=== PATIENT | female | born 1995 | race Caucasian/White ===

== ENCOUNTER → 2018-10-31 | Outpatient (CLI) | payer OTHER ==
[2018-10-31 13:19] LABS: HEMATOCRIT 38.4 % (36.0-47.0); HEMOGLOBIN 12.5 g/dl (12.0-15.5); MEAN CORPUSCULAR HEMOGLOBIN 31.6 pg (27.0-33.0); MEAN CORPUSCULAR HGB CONC 32.6 g/dl (32.0-36.5); MEAN CORPUSCULAR VOLUME 97.2 fl (80.0-96.0); PLATELET COUNT, AUTOMATED 192 10^3/uL (150-450); RED BLOOD COUNT 3.95 10^6/uL (4.00-5.40); WHITE BLOOD COUNT 8.1 10^3/uL (4.0-10.0)
[2018-10-31 13:20] LABS: GLUCOSE CHALLENGE TEST 1 HOUR 110 MG/DL (LESS THAN 140)
[2018-10-31 14:14] LABS: HEPATITIS C VIRUS ABY INDEX < 0.0 INDEX (<0.8)
== END ==
LOC: M SMT 09:04
PROVIDERS: ATTEND Obstetrics & Gynecology
DX: Z34.82 Encounter for supervision of other normal pregnancy, second trimester (principal)

== ENCOUNTER → 2018-11-14 | Outpatient (REF) | payer OTHER ==
[2018-11-14 14:08] LABS: TOTAL PROTEIN,RANDOM URINE 17.5 MG/DL (0.0-12.0)
== END ==
LOC: M LAB REF 13:01
PROVIDERS: ATTEND Obstetrics & Gynecology
DX: O09.293 Supervision of pregnancy with other poor reproductive or obstetric history, third trimester (principal)

== ENCOUNTER 2018-11-19 00:20 | Outpatient (CLI) | payer OTHER ==
[~2018-11-19] VITALS: Ht 154.9 cm; Wt 101.5 kg
[2018-11-19 00:50] VITALS: BP 134/84
[2018-11-19] MEDS ORDERED: LR 1,000 ML IV SCH (01:30)
[2018-11-19] MEDS ORDERED: LACTATED RINGER'S 1000 ML IV ONE (01:30)
[2018-11-19 01:45] LABS: APPEARANCE, URINE HAZY (CLEAR); BACTERIA, URINE AUTO NEGATIVE (NEGATIVE); BILIRUBIN, URINE AUTO NEGATIVE (NEGATIVE); BLOOD, URINE BLOOD 1+ (NEGATIVE); COLOR, URINE YELLOW (YELLOW); GLUCOSE, URINE (UA) AUTO NEGATIVE (NEGATIVE); KETONE, URINE AUTO NEGATIVE (NEGATIVE); LEUKOCYTE ESTERASE, URINE AUTO NEGATIVE (NEGATIVE); NITRITE, URINE AUTO NEGATIVE (NEGATIVE); PROTEIN, URINE AUTO NEGATIVE (NEGATIVE); RBC, URINE AUTO 22 /HPF (0-3); SPECIFIC GRAVITY URINE AUTO 1.021 (1.002-1.035); SQUAMOUS EPITHELIAL CELL UR AU 1 /HPF (0-6); UROBILINOGEN, URINE AUTO 0.2 mg/dL (0.0-2.0); WBC, URINE AUTO 1 /HPF (0-3)
--- NOTE | 2018-11-19 01:49 | IPNPDOC ---
Text Note Date of Service The patient was seen on 11/19/18. NOTE Outpatient 23yo G [id number] KALEE 01/19/19. Presents @ 31w2d with reports of UC. Reports shopping most of the day. Denies LOF or bleeding. Fetus is active Hx significant for threatened PTL first , received steroids then delivered @ 38 wks. Also 21wk stillbirth. NAD, resting in bed Cat I tracing, mild uterine irritability SSE cervix visually LTC, FFN obtained SVE parous, LTC, no presenting part in pelvis. Hydrate and reassess VS,Fishbone, I+O VS, Fishbone, I+O Vital Signs Date Time Temp Pulse Resp B/P (MAP) Pulse Ox O2 Delivery O2 Flow Rate FiO2 11/19/18 00:50 98.9 96 18 134/84 (101) Paulette Brunson CNM Nov 19, 2018 01:49
--- NOTE | 2018-11-19 03:15 | IPNPDOC ---
Text Note Date of Service The patient was seen on 11/19/18. NOTE FFN is negative Renal scan WNL. Pt reports UC are decreasing in intensity with oral hydration Cat I tracing Desires discharge Routine care and precautions. Keep next appt VS,Fishbone, I+O VS, Fishbone, I+O Vital Signs Date Time Temp Pulse Resp B/P (MAP) Pulse Ox O2 Delivery O2 Flow Rate FiO2 11/19/18 00:50 98.9 96 18 134/84 (101) Paulette Brunson CNM Nov 19, 2018 03:15
--- NOTE | 2018-11-19 04:13 | REPVR ---
EXAM: US Retroperitoneal Limited, Kidneys EXAM DATE/TIME: 11/19/2018 2:52 AM CLINICAL HISTORY: 23 years old, female; Abnormal findings; Abnormal lab test; Other: Hematuria; ; Additional info: Hematuria, cramping TECHNIQUE: Imaging protocol: Real-time ultrasound of the retroperitoneum with image documentation. Examination was focused on the kidneys. COMPARISON: No relevant prior studies available. FINDINGS: Right kidney: Right kidney is unremarkable measuring 13.7 cm. Left kidney: Left kidney is unremarkable measuring 12 cm. Bladder: Urinary bladder is unremarkable. Other findings: heart rate is 134 beats per minute. IMPRESSION: Bilateral kidneys are unremarkable. The urinary bladder is unremarkable. Electronically signed by: Kimberley Shultz On 11/19/2018 04:13:23 AM
== END 2018-11-19 03:19 | disposition home or self-care (01) ==
LOC: M LDO 00:20
PROVIDERS: ATTEND Advanced Practice Midwife
DX: O26.893 Other specified pregnancy related conditions, third trimester (principal); Z3A.31 31 weeks gestation of pregnancy
CPT/HCPCS: 59025; 76775; 81001; 82731; 87086; G0378; G0463

== ENCOUNTER → 2020-12-02 | Outpatient (CLI) | payer OTHER ==
[2020-12-02 13:25] LABS: HEMATOCRIT 36.7 % (36.0-47.0); HEMOGLOBIN 11.9 g/dl (12.0-15.5); MEAN CORPUSCULAR HEMOGLOBIN 30.1 pg (27.0-33.0); MEAN CORPUSCULAR HGB CONC 32.4 g/dl (32.0-36.5); MEAN CORPUSCULAR VOLUME 92.7 fl (80.0-96.0); PLATELET COUNT, AUTOMATED 222 10^3/uL (150-450); RED BLOOD COUNT 3.96 10^6/uL (4.00-5.40); WHITE BLOOD COUNT 6.8 10^3/uL (4.0-10.0)
[2020-12-02 14:44] LABS: HIV 1&2 SCREEN CENTAUR NEGATIVE (NEGATIVE)
[2020-12-02 14:47] LABS: GC DNA AMPLIFICATION NEGATIVE (NEGATIVE)
== END ==
LOC: M PLALAB 09:37
PROVIDERS: ATTEND Specialist
DX: Z34.81 Encounter for supervision of other normal pregnancy, first trimester (principal); Z3A.00 Weeks of gestation of pregnancy not specified
CPT/HCPCS: 36415; 85027; 86762; 86780; 86803; 86850; 86900; 86901; 87086; 87340; 87389; 87491; 87591; G0463

== ENCOUNTER → 2021-01-01 | Outpatient (CLI) | payer OTHER ==
--- NOTE | 2021-01-01 15:35 | REP ---
INDICATION: ANATOMY. COMPARISON: None. TECHNIQUE: Transabdominal scanning FINDINGS: Multiple ultrasonographic images of the gravid uterus shows a single living intrauterine gestation in the transverse presentation. Doppler interrogation of the heart shows a heart rate of 139 beats per minute. The placenta is anterior and not low-lying. The cervix measures 5.1 cm in length and is closed. The subjective amniotic fluid volume is within normal limits. BPD: 4.3 cm 19 weeks 0 days HC: 16.3 cm 19 weeks 0 days AC: 14.2 cm 19 weeks 4 days FL: 3.2 cm 20 weeks 0 days The estimated weight is 306 g which is at the 9th percentile for a 20 week 4 day gestational age. The anatomical structures seen to be unremarkable are as follows: Thalami, cavum septum pellucidum, cerebellum, cisterna magna, cerebral ventricles, stomach, cord insertion, upper lower extremities. Structures suboptimally visualized are as follows: Spine, kidneys, four-chamber heart, right ventricular outflow tract, and three-vessel umbilical cord IMPRESSION: Single living intrauterine gestation as described above with an estimated gestational age of 19 weeks 4 days via composite criteria and an estimated date of delivery of 05/24/2021 by today's exam. No anomalies were detected, however, I recommend a follow-up examination to optimally visualize those anatomical structures not well seen today as described above. <Electronically signed by Juan David Chapa > 01/01/21 1832
== END ==
LOC: M WHC 14:40
PROVIDERS: ATTEND Obstetrics & Gynecology
DX: Z36.89 Encounter for other specified antenatal screening (principal); Z3A.19 19 weeks gestation of pregnancy

== ENCOUNTER → 2021-01-21 | Outpatient (CLI) | payer OTHER ==
--- NOTE | 2021-01-22 06:41 | REP ---
INDICATION: F/U ANATOMY COMPARISON: 01/01/2021 TECHNIQUE: Transabdominal obstetrical ultrasound with color Doppler evaluation. FINDINGS: Examination demonstrates a single live intrauterine in transverse presentation. motion is identified by technologist. Placenta is noted anterior and grade 1 without evidence for placenta previa or abruption. Amniotic fluid volume is normal. Cervix measures 5.7 cm in length and appears closed.. Selected gestational age: 23 weeks 3 days with KALEE 05/17/2021. Gestational age by current measurements 21 weeks 3 days with KALEE 05/31/2021. FHR equals 147 beats per minute. Estimated weight 420 grams (less than 3rdpercentile). Anatomical assessment is limited for the evaluation of orbits, nose/lips, heart/ventricular outflow tracts and spine due to positioning and maternal body habitus. IMPRESSION: 1. Single live intrauterine demonstrating less than expected interval growth and correlation is recommended. 2. Limited evaluation of the spine and nose/lips again noted. <Electronically signed by Tripp Spears > 01/22/21 0678
== END ==
LOC: M WHC 13:08
PROVIDERS: ATTEND Specialist
DX: O99.212 Obesity complicating pregnancy, second trimester (principal); Z3A.23 23 weeks gestation of pregnancy

== ENCOUNTER → 2021-02-13 | Outpatient (CLI) | payer OTHER ==
--- NOTE | 2021-02-13 14:25 | REP ---
INDICATION: F/U ANATOMY. COMPARISON: Comparison study January 21, 2021. TECHNIQUE: Transabdominal obstetric sonography. FINDINGS: Scanning through the gravid uterus demonstrates a viable single intrauterine gestation in variable lie. motion is observed and heart rate is recorded at 142 beats per minute. A anterior placenta is seen, grade 1, without evidence of placenta previa. Closed cervical length is measured at 4.3 cm transabdominally. No extrauterine abnormality is observed. Amniotic fluid is subjectively normal. spine, nose and lips were visualized today and are felt to be unremarkable. In conjunction with the prior studies, anatomic survey is felt to be complete. Biometry chart: BPD 6.3 cm, 25 weeks 4 days Head circumference 23.3 cm, 25 weeks 3 days Abdominal circumference 21.7 cm, 26 weeks 1 day Femur length 4.8 cm, 26 weeks 0 days Humeral length 4.4 cm, 26 weeks 3 days HC AC ratio normal 1.08 Cephalic index normal 0.75 Estimated weight 878 g, 1 lb 14 oz, 12th percentile for 26 weeks 6 days IMPRESSION: Viable single intrauterine gestation at 25 weeks 6 days by today's composite sonographic criteria. KALEE by today's sonography May 23, 2021. No complication identified. Expected gestational age estimate based on known KALEE of May 16, 2021 is 26 weeks 6 days. <Electronically signed by Donovan De Dios > 02/13/21 1618
== END ==
LOC: M WHC 13:33
PROVIDERS: ATTEND Specialist
DX: Z36.2 Encounter for other antenatal screening follow-up (principal); Z3A.25 25 weeks gestation of pregnancy

== ENCOUNTER → 2021-02-24 | Outpatient (CLI) | payer OTHER ==
[2021-02-24 13:44] LABS: HEMATOCRIT 34.7 % (36.0-47.0); HEMOGLOBIN 11.2 g/dl (12.0-15.5); MEAN CORPUSCULAR HEMOGLOBIN 30.5 pg (27.0-33.0); MEAN CORPUSCULAR HGB CONC 32.3 g/dl (32.0-36.5); MEAN CORPUSCULAR VOLUME 94.6 fl (80.0-96.0); PLATELET COUNT, AUTOMATED 221 10^3/uL (150-450); RED BLOOD COUNT 3.67 10^6/uL (4.00-5.40); WHITE BLOOD COUNT 7.4 10^3/uL (4.0-10.0)
[2021-02-24 15:28] LABS: GC DNA AMPLIFICATION NEGATIVE (NEGATIVE)
== END ==
LOC: M PLALAB 09:51
PROVIDERS: ATTEND Specialist
DX: O99.212 Obesity complicating pregnancy, second trimester (principal)

== ENCOUNTER → 2021-03-07 | Outpatient (CLI) | payer OTHER ==
--- NOTE | 2021-03-07 11:29 | REP ---
INDICATION: IUGR COMPARISON: 02/13/2021 TECHNIQUE: Transabdominal obstetrical ultrasound with color Doppler evaluation. FINDINGS: Examination demonstrates a single live intrauterine in breech presentation. motion is identified by technologist. Placenta is noted fundal and grade 1 without evidence for placenta previa or abruption. Amniotic fluid volume is normal. Cervix measures 4.9 cm in length and appears closed.. Selected gestational age: 30 weeks 0 days with KALEE 05/16/2021. FHR equals 142 beats per minute. Biophysical profile score: 8/ Amniotic fluid index: 19.4 cm (9.0-23.4) Umbilical artery SD ratio: 3.42 IMPRESSION: Single live advanced gestation in breech presentation. Amniotic fluid volume is upper limits of normal. Biophysical profile score normal. <Electronically signed by Tripp Spears > 03/07/21 [id number]
== END ==
LOC: M WHC 10:39
PROVIDERS: ATTEND Advanced Practice Midwife
DX: Z36.3 Encounter for antenatal screening for malformations (principal); O36.5930 Maternal care for other known or suspected poor fetal growth, third trimester, not applicable or unspecified

== ENCOUNTER → 2021-03-14 | Outpatient (CLI) | payer OTHER ==
--- NOTE | 2021-03-14 16:54 | REP ---
INDICATION: GROWTH BPP IUGR. COMPARISON: 03/07/2021. TECHNIQUE: Real-time sonographic evaluation of the gravid uterus performed. FINDINGS: Estimated gestational age is31 weeks 0 days, EDC 05/16/2021. Today's measurements indicate appropriate growth. Presentation: Breech Placenta anterior, grade 2, without evidence of placenta previa. heart rate is recorded at 133 beats per minute. Amniotic fluid is subjectively normal. TODD 20.2, normal range 8.8-23.8. Biophysical profile score 8/8. SD ratio umbilical artery 4.19, normal range 1.90-3.98. RI 0.76, normal 0.51-0.76. Closed cervical length is measured at 4.9 cm. Biometry chart: BPD: 73 mm, 29 weeks 3 days, 18th percentile. HC: 274 mm, 29 weeks 6 days, 26th percentile AC: 258 mm, 30 weeks 0 days, 28th percentile Femur length: 57 mm, 30 weeks 0 days, 27th percentile HC to AC ratio: 1.06, normal range 0.96-1.15. Estimated weight: 1474g, 11th percentile. IMPRESSION: Viable single intrauterine gestation as above. <Electronically signed by Jomar Gomez > 03/14/21 5162
== END ==
LOC: M WHC 14:03
PROVIDERS: ATTEND Advanced Practice Midwife
DX: Z36.2 Encounter for other antenatal screening follow-up (principal); O36.5930 Maternal care for other known or suspected poor fetal growth, third trimester, not applicable or unspecified; Z3A.31 31 weeks gestation of pregnancy

== ENCOUNTER → 2021-03-19 | Outpatient (CLI) | payer OTHER ==
--- NOTE | 2021-03-20 11:41 | REP ---
INDICATION: BPP IUGR. COMPARISON: 03/14/2021. TECHNIQUE: Real-time sonographic evaluation of gravid uterus performed peer FINDINGS: There is a single living intrauterine gestation, the estimated gestational age is 31 weeks 5 days, EDC 05/16/2021. position transverse. Placenta anterior and grade 1 with no previa. heart rate 135 beats per minute. Amniotic fluid within normal limits. TODD 18.4, normal 8.7-24.1. Biophysical profile score 8/8. SD ratio umbilical artery 3.80, normal 1.87-3.90. RI 0.74, normal 0.50-0.75. Cervix is closed measures 4.4 cm in length. IMPRESSION: Biophysical profile score 8/8. <Electronically signed by Jomar Gomez > 03/20/21 [id number]
== END ==
LOC: M WHC 13:32
PROVIDERS: ATTEND Advanced Practice Midwife
DX: Z36.9 Encounter for antenatal screening, unspecified (principal); O36.5930 Maternal care for other known or suspected poor fetal growth, third trimester, not applicable or unspecified; Z3A.31 31 weeks gestation of pregnancy

== ENCOUNTER → 2021-03-21 | Outpatient (CLI) | payer OTHER ==
--- NOTE | 2021-03-21 15:35 | REP ---
INDICATION: BPP X2 WKLY IUGR. COMPARISON: 03/19/2021. TECHNIQUE: Real-time sonographic evaluation of gravid uterus performed. FINDINGS: There is a single living intrauterine gestation. The estimated gestational age is reportedly 32 weeks 0 days, EDC 05/16/2021. position transverse. Placenta anterior and grade 1 with no previa. heart rate 120 beats per minute. Amniotic fluid within normal limits. TODD 19.1, normal 8.6-24.2. Biophysical profile score 8/8. SD ratio umbilical artery 2.84, normal 1.84-3.87. RI 0.65, normal 0.50-0.75. Cervix is closed measures 5.3 cm in length. IMPRESSION: Biophysical profile score 8/8. <Electronically signed by Jomar Gomez > 03/21/21 [id number]
== END ==
LOC: M WHC 12:10
PROVIDERS: ATTEND Advanced Practice Midwife
DX: O36.5930 Maternal care for other known or suspected poor fetal growth, third trimester, not applicable or unspecified (principal); Z3A.00 Weeks of gestation of pregnancy not specified

== ENCOUNTER → 2021-03-25 | Outpatient (CLI) | payer OTHER ==
--- NOTE | 2021-03-25 15:03 | REP ---
INDICATION: BPP GROWTH IUGR. COMPARISON: 03/21/2021. TECHNIQUE: Real-time sonographic evaluation of the gravid uterus performed. FINDINGS: Estimated gestational age is32 weeks 4 days, EDC 05/16/2021. Today's measurements indicate somewhat less than expected growth. Today's estimated weight is at the 6th percentile, previously 11th percentile 03/14/2021. Presentation: Transverse Placenta anterior, grade 1, without evidence of placenta previa. heart rate is recorded at 140 beats per minute. Amniotic fluid is subjectively normal. TODD 22.0, normal 8.4-24.4. Biophysical profile score 8/8. SD ratio 3.54, normal 1.81-3.81. RI 0.72, normal 0.49-0.74. Closed cervical length is measured at 3.5 cm. Biometry chart: BPD: 79 mm, 31 weeks 4 days, 34th percentile. HC: 283 mm, 31 weeks 0 days, 26th percentile AC: 268 mm, 31 weeks 0 days, 26th percentile Femur length: 59 mm, 30 weeks 5 days, 21st percentile HC to AC ratio: 1.05, normal range 0.95-1.14. Estimated weight: 1660g, 6th percentile. IMPRESSION: Viable single intrauterine gestation as above. <Electronically signed by Jomar Gomez > 03/25/21 8156
== END ==
LOC: M WHC 13:34
PROVIDERS: ATTEND Advanced Practice Midwife
DX: Z36.2 Encounter for other antenatal screening follow-up (principal); O36.5930 Maternal care for other known or suspected poor fetal growth, third trimester, not applicable or unspecified; Z3A.32 32 weeks gestation of pregnancy

== ENCOUNTER → 2021-03-28 | Outpatient (CLI) | payer OTHER ==
--- NOTE | 2021-03-28 16:32 | REP ---
INDICATION: BPP IUGR. COMPARISON: 03/25/2021. TECHNIQUE: Real-time sonographic evaluation of the gravid uterus performed. FINDINGS: Estimated gestational age is33 weeks 0 days, EDC 05/16/2021. Presentation: Transverse, head maternal right Placenta anterior, grade 1, without evidence of placenta previa. heart rate is recorded at 143 beats per minute. Amniotic fluid is subjectively normal. TODD 22.4, normal 8.3-24.5. Biophysical profile score 8/8. SD ratio umbilical artery 3.01, normal 1.79-3.77. RI 0.67, normal 0.48-0.74. Closed cervical length is measured at 4.7 cm. IMPRESSION: Viable single intrauterine gestation as above. <Electronically signed by Jomar Gomez > 03/28/21 0607
== END ==
LOC: M WHC 10:33
PROVIDERS: ATTEND Advanced Practice Midwife
DX: O36.5930 Maternal care for other known or suspected poor fetal growth, third trimester, not applicable or unspecified (principal); Z3A.33 33 weeks gestation of pregnancy

== ENCOUNTER → 2021-03-31 | Outpatient (CLI) | payer OTHER ==
--- NOTE | 2021-04-01 14:24 | REP ---
INDICATION: BI WEEKLY BPP IUGR. COMPARISON: 03/28/2021. TECHNIQUE: Real-time sonographic evaluation of the gravid uterus performed. FINDINGS: Estimated gestational age is33 weeks 3 days, EDC 05/16/2021. Presentation: Transverse, head maternal left. Placenta anterior, grade 1, without evidence of placenta previa. heart rate is recorded at 134 beats per minute. Amniotic fluid is subjectively normal. TODD 18.9, normal 8.2-24.6. Biophysical profile score 8/8. SD ratio umbilical artery 3.46, normal 1.76-3.73. RI 0.71, normal 0.48-0.74. Closed cervical length is measured at 4.5 cm. IMPRESSION: Viable single intrauterine gestation as above. <Electronically signed by Jomar Gomez > 04/01/21 [id number]
== END ==
LOC: M WHC 14:03
PROVIDERS: ATTEND Advanced Practice Midwife
DX: Z36.3 Encounter for antenatal screening for malformations (principal); O36.5930 Maternal care for other known or suspected poor fetal growth, third trimester, not applicable or unspecified; Z3A.33 33 weeks gestation of pregnancy

== ENCOUNTER → 2021-04-04 | Outpatient (CLI) | payer OTHER ==
--- NOTE | 2021-04-04 15:29 | REP ---
INDICATION: IMATERN CARE FOR OTH OR SUSP POOR FETL GRTH, THIRD TRI, UNSP. COMPARISON: 03/31/2021, 03/28/2021, 03/25/2021. TECHNIQUE: Limited Ob ultrasound with amniotic fluid volume, biophysical profile, umbilical artery Doppler. FINDINGS: Scanning demonstrates a viable single intrauterine gestation in a cephalic lie. motion is observed and heart rate is recorded at 133 beats per minute. An anterior, fundal grade 1 placenta is seen without evidence of previa. Three-vessel cord is seen. Amniotic fluid is subjectively normal. TODD 15.8 cm (8.1-24.8 normal). Closed cervical length is measured at 5 cm transabdominally. No extrauterine abnormality is observed. No anatomy screen is requested or performed. The umbilical artery Doppler: Mid cord SD ratio 2.61 (1.73-3.68). Normal forward diastolic flow seen throughout. Biophysical profile: Breathing 2, tone 2, movement 2, AF V 2 IMPRESSION: Viable single intrauterine gestation at 33 weeks 6 days based on prior initial sonography. KALEE by prior sonography 05/17/2021.. Normal cord Doppler, heart rate 133, fundal grade 1 placenta without previa or abruption, normal TODD 15.8. Biophysical profile score: 8/8. <Electronically signed by Delnao Camejo > 04/04/21 3441
== END ==
LOC: M WHC 10:04
PROVIDERS: ATTEND Advanced Practice Midwife
DX: Z36.2 Encounter for other antenatal screening follow-up (principal); O36.5930 Maternal care for other known or suspected poor fetal growth, third trimester, not applicable or unspecified; Z3A.33 33 weeks gestation of pregnancy

== ENCOUNTER → 2021-04-04 | Outpatient (CLI) | payer OTHER | LOC: M PLALAB 10:55 | PROVIDERS: ATTEND Specialist | DX: Z36.9 Encounter for antenatal screening, unspecified (principal); O36.5930 Maternal care for other known or suspected poor fetal growth, third trimester, not applicable or unspecified; Z3A.00 Weeks of gestation of pregnancy not specified ==

== ENCOUNTER → 2021-04-07 | Outpatient (CLI) | payer OTHER ==
--- NOTE | 2021-04-07 14:12 | REP ---
INDICATION: WEEKLY BPP WITH DOPPLERS GROWTH IUGR COMPARISON: 04/04/2021 TECHNIQUE: Transabdominal obstetrical ultrasound with color Doppler evaluation. FINDINGS: Examination demonstrates a single live intrauterine in transverse (head to maternal right) presentation. motion is identified by technologist. Placenta is noted anterior and grade 1 without evidence for placenta previa or abruption. Amniotic fluid volume is normal. Cervix measures 4.8 cm in length and appears closed. Nuchal cord noted. Selected gestational age: 34 weeks 3 days with KALEE 05/16/2021. Gestational age by current measurements 34 weeks 0 days with KALEE 05/19/2021. FHR equals 133 beats per minute. Biophysical profile score: 8/8 TODD: 16.3 cm Umbilical artery SD ratio: 2.95 (1.71-3.64). IMPRESSION: 1. Single live intrauterine in transverse lie demonstrating appropriate estimated weight and growth. 2. Biophysical profile score and amniotic fluid volume are normal. 3. Nuchal cord noted. <Electronically signed by Tripp Speasr > 04/07/21 1955
== END ==
LOC: M WHC 13:35
PROVIDERS: ATTEND Advanced Practice Midwife
DX: Z36.4 Encounter for antenatal screening for fetal growth retardation (principal); O36.5930 Maternal care for other known or suspected poor fetal growth, third trimester, not applicable or unspecified; Z3A.34 34 weeks gestation of pregnancy

== ENCOUNTER → 2021-04-11 | Outpatient (CLI) | payer OTHER ==
--- NOTE | 2021-04-11 14:42 | REP ---
INDICATION: BPP X2 WEEKLY IUGR COMPARISON: 04/07/2021 TECHNIQUE: Transabdominal obstetrical ultrasound with color Doppler evaluation. FINDINGS: Examination demonstrates a single live intrauterine in transverse (head to maternal left) presentation. motion is identified by technologist. Placenta is noted anterior and grade 2 without evidence for placenta previa or abruption. Amniotic fluid volume is normal. Cervix measures 5.1 cm in length and appears closed.. Selected gestational age: 35 weeks 0 days with KALEE 05/16/2021. FHR equals 127 beats per minute. TODD: 17.9 cm Umbilical artery SD ratio: 3.13 Biophysical profile score: 8/8. IMPRESSION: Single live advanced gestation. Amniotic fluid volume and biophysical profile score normal. <Electronically signed by Tripp Spears > 04/11/21 [id number]
== END ==
LOC: M WHC 13:31
PROVIDERS: ATTEND Advanced Practice Midwife
DX: Z36.4 Encounter for antenatal screening for fetal growth retardation (principal); O36.5930 Maternal care for other known or suspected poor fetal growth, third trimester, not applicable or unspecified; Z3A.35 35 weeks gestation of pregnancy

== ENCOUNTER → 2021-04-14 | Outpatient (CLI) | payer OTHER ==
--- NOTE | 2021-04-14 13:18 | REP ---
INDICATION: IUGR AFFECTING CARE OF MOTHER, 3RD TRI, SINGLE GESTATION COMPARISON: 04/11/2021 TECHNIQUE: Transabdominal obstetrical ultrasound with color Doppler evaluation. FINDINGS: Examination demonstrates a single live intrauterine in transverse presentation. motion is identified by technologist. Placenta is noted anterior and grade 2 without evidence for placenta previa or abruption. Amniotic fluid volume is normal. Cervix measures 4.1 cm in length and appears closed.. Selected gestational age: 35 weeks 3 days with KALEE 05/16/2021. FHR equals 128 beats per minute. TODD: 12.1 cm Biophysical profile score: 8/8 Umbilical artery SD ratio: 2.60 IMPRESSION: Single live intrauterine in transverse lie. Amniotic fluid index and biophysical profile score normal. <Electronically signed by Tripp Spears > 04/14/21 [id number]
== END ==
LOC: M WHC 11:31
PROVIDERS: ATTEND Advanced Practice Midwife
DX: O36.5930 Maternal care for other known or suspected poor fetal growth, third trimester, not applicable or unspecified (principal); Z3A.35 35 weeks gestation of pregnancy

== ENCOUNTER → 2021-04-16 | Outpatient (REF) | payer OTHER | LOC: M SFHCWAGY 17:02 | PROVIDERS: ATTEND Obstetrics & Gynecology | DX: O99.213 Obesity complicating pregnancy, third trimester (principal) ==

== ENCOUNTER → 2021-04-16 | Outpatient (CLI) | payer OTHER ==
--- NOTE | 2021-04-16 08:54 | REP ---
INDICATION: BPP X2 WKLY IUGR COMPARISON: None. TECHNIQUE: Transabdominal obstetrical ultrasound with color Doppler evaluation. FINDINGS: Examination demonstrates a single live intrauterine in transverse presentation. motion is identified by technologist. Placenta is noted anterior and grade 1 without evidence for placenta previa or abruption. Amniotic fluid volume is normal. Cervix measures 4.7 cm in length and appears closed.. Selected gestational age: 35 weeks 5 days with KALEE 05/16/2021. FHR equals 130 beats per minute. Biophysical profile score: 12/29 TODD: 17.9 cm Umbilical artery SD ratio: 2.50 IMPRESSION: Single live intrauterine in transverse lie. Biophysical profile score normal. Amniotic fluid volume normal. <Electronically signed by Tripp Spears > 04/16/21 5142
== END ==
LOC: M WHC 08:02
PROVIDERS: ATTEND Advanced Practice Midwife
DX: Z36.2 Encounter for other antenatal screening follow-up (principal); O36.5930 Maternal care for other known or suspected poor fetal growth, third trimester, not applicable or unspecified; Z3A.35 35 weeks gestation of pregnancy

== ENCOUNTER → 2021-04-21 | Outpatient (CLI) | payer OTHER ==
[~2021-04-21] MED LIST: CLAR10CA3 PO; DOCU-153 PO; METF500T13 PO; OMEP-173 PO; OXYC1TAB23 PO; PRENTAB9 PO
== END ==
LOC: M WHC 13:32
PROVIDERS: ATTEND Advanced Practice Midwife
DX: Z36.2 Encounter for other antenatal screening follow-up (principal); O36.5930 Maternal care for other known or suspected poor fetal growth, third trimester, not applicable or unspecified; Z3A.34 34 weeks gestation of pregnancy

== ENCOUNTER → 2021-04-23 | Outpatient (CLI) | payer OTHER | LOC: M LABSMTC 11:41 | PROVIDERS: ATTEND Anesthesiology | DX: Z01.818 Encounter for other preprocedural examination (principal); Z11.52 Encounter for screening for COVID-19 ==

== ENCOUNTER → 2021-04-25 | Outpatient (CLI) | payer OTHER ==
[~2021-04-25] MED LIST changes: -OMEP-173 PO; +OMEP-218 PO
--- NOTE | 2021-04-26 17:10 | REP ---
INDICATION: BPP X2 WEEKLY IUGR COMPARISON: 04/21/2021 TECHNIQUE: Transabdominal obstetrical ultrasound with color Doppler evaluation. FINDINGS: Examination demonstrates a single live intrauterine in transverse (head to maternal right) presentation. motion is identified by technologist. Placenta is noted anteriorly and grade 1 without evidence for placenta previa or abruption. Amniotic fluid volume is normal. Cervix measures 4.3 cm in length and appears closed. No evidence for nuchal cord TODD: 24.2 cm (7.5-24.4) Biophysical profile score: 8/8 Umbilical artery SD ratio: 2.81. Selected gestational age: 37 weeks 0 days with KALEE 05/16/2021. FHR equals 129 beats per minute. IMPRESSION: Single live intrauterine in transverse lie. Biophysical profile score: 8/8 Amniotic fluid volume is upper limits of normal. <Electronically signed by Tripp Spears > 04/26/21 [id number]
== END ==
LOC: M WHC 09:32
PROVIDERS: ATTEND Advanced Practice Midwife
DX: Z36.2 Encounter for other antenatal screening follow-up (principal); O36.5930 Maternal care for other known or suspected poor fetal growth, third trimester, not applicable or unspecified; Z3A.00 Weeks of gestation of pregnancy not specified

== ENCOUNTER 2021-04-27 14:27 | Inpatient (IN) | payer OTHER ==
[~2021-04-27] VITALS: Ht 154.9 cm; Wt 113.2 kg
[~2021-04-27 14:27] MED LIST changes: -OXYC1TAB23 PO; -PRENTAB9 PO
[2021-04-27] MEDS ORDERED: PRENTAB9 PO (14:56)
[2021-04-27 14:59] VITALS: BP 157/94
[2021-04-27] MEDS ORDERED: HOME MED LIST COMPLETE! XX SCH (15:00)
[2021-04-27 15:01] VITALS: BP 142/96
[2021-04-27 16:14] VITALS: BP 157/81
[2021-04-27 16:23] LABS: HEMATOCRIT 37.2 % (36.0-47.0); HEMOGLOBIN 12.1 g/dl (12.0-15.5); MEAN CORPUSCULAR HEMOGLOBIN 29.9 pg (27.0-33.0); MEAN CORPUSCULAR HGB CONC 32.5 g/dl (32.0-36.5); MEAN CORPUSCULAR VOLUME 91.9 fl (80.0-96.0); PLATELET COUNT, AUTOMATED 228 10^3/uL (150-450); RED BLOOD COUNT 4.05 10^6/uL (4.00-5.40); WHITE BLOOD COUNT 8.8 10^3/uL (4.0-10.0)
[2021-04-27 16:45] LABS: ALT/SGPT 27 U/L (12-78); BILIRUBIN,TOTAL 0.4 MG/DL (0.2-1.0); CREATININE FOR GFR 0.56 MG/DL (0.55-1.30); GLOMERULAR FILTRATION RATE > 60.0 (>60); LDH LACTATE DEHYDROGENASE 141 U/L (84-246); URIC ACID 5.9 MG/DL (2.6-6.0)
[2021-04-27] MEDS ORDERED: LACTATED RINGER'S 1000 ML IV STA (17:12)
--- OUTSIDE RECORDS SUMMARY | 2021-04-27 17:13 | CCD ---
Author Author [facility] Organization [facility] Address Unknown Phone Unavailable Care Team Providers Care Caster [employer] Name Role Phone Liam Garcia Unavailable PROBLEMS Type Condition ICD9-CM Code FLP05-XF Code Onset Dates Condition S tatus W/U Status Risk SNOMED Code Notes Problem Obesity, unspecified E66.9 Active confirmed 209424340 Problem Obesity affecting in third trimester O99 .213 Active confirmed 006209792234 Problem Supervision of other normal Z34.80 Ac tive confirm 023320714 Problem Obesity complicating , second trimester O 99.212 Active confirmed [id number] ALLERGIES Allergen (clinical drug ingredient) Drug/Non Drug Allergy do cumented on EMR Reaction Allergy Type Onset Date Status penicillin V Penicillin Hives Drug Allergy Active ibuprofen Ibuprofen([facility] Code:[address]-15) Itching Drug Allergy Active ENCOUNTERS from 1995 to 2021-04-17 Encounter Location Date Provider Diagnosis [facility] [address] [place] [address] [place] [address] Mar, Liam Garcia Obesity affecting pr egnancy in third trimester O99.213 ; malpresentation O32.9XX0 ; 36 weeks gestation of Z3A.36 and History of stillbirth Z87.59 IMMUNIZATIONS Vaccine Route Administration Date Status TDAP 0.5mL Boostrix IM Intramuscular Feb 28, 2021 Administere d SOCIAL HISTORY Tobacco Use: Social History Observation Description Date Details (start date - stop date) Former Smoker Sex Assigned At : Social History Observation Description Sex Assigned At Unknown Alcohol Screening: Question Answer Notes Did you have a drink containing alcohol in the past year? No Points 0 Interpretation Negative Tobacco Use: Question Answer Notes Are you a: former smoker How long has it been since you last smoked? 1-5 years REASON FOR REFERRAL No Information VITAL SIGNS Weight 247 lbs Mar, Height 61 in Mar, BMI 46.67 kg/m2 Mar, Blood pressure systolic 118 mm Hg Mar, Blood pressure diastolic 62 mm Hg Mar, MEDICATIONS Medication SIG (Take, Route, Frequency, Duration) Notes Start Da te End Date Status Aspir-Low 81 MG 1 tablet Orally Once a day for 30 day(s) 1 Nov, Not-Taking metFORMIN HCl ER 500 MG 2 tab once daily Orally Twice a day for 30 day(s) Active Omeprazole 20 MG 1 capsule 30 minutes before morning meal Orally Once a day for 30 day(s) Feb, Active 27-1 MG 1 tablet Orally Once a day Active Vitamin D 25 MCG (1000 UT) 1 tablet Orally Once a day Not-Taking Claritin 10 MG 1 tablet Orally Once a day Active PROCEDURES No Information RESULTS No Results REASON FOR VISIT 1 WK PN/NST MEDICAL (GENERAL) HISTORY Type Description Date Medical History Gestational hypertension Medical History PCOS Medical History Anxiety/ Depression Surgical History Ankle left 2016 Surgical History Gall bladder 2016 Surgical History dental surgery-implant Hospitalization History Surgical related Hospitalization History Childbirth Goals Section No Information Health Concerns No Information MEDICAL EQUIPMENT No Information MENTAL STATUS No Information FUNCTIONAL STATUS No Information ASSESSMENTS Encounter Date Diagnosis Assessment Notes Treatment Notes Treatm ent Clinical Notes Mar, [facility] ([facility] - O99.213) Mar, malpresentation (ICD-10 - O32.9XX0) Mar, 36 weeks gestation of (ICD-10 - Z3A.36 ) Mar, History of stillbirth (ICD-10 - Z87.59) PLAN OF TREATMENT Pending Tests Test Name Order Date GROUP B STREP CULTURE 2021-04-16 Next Appt Details 1 Week Reason:PN Provider Name:Sue Eng, 2021-04-24 10:40:00 AM, [address] [facility], , [place], [address], Provider Name:Liam Garcia, 07:30:00 AM, [address] [place] [address], , [place], [address], Provider Name:Sue Eng, 2021-04-28 07:30:00 AM, [address] [place] [address], , [place], [address], Provider Name:Liam Garcia, 09:00:00 AM, [address] [place] [address], , [place], [address], Provider Name:Liam Garcia, 10:20:00 AM, [address] [place] [address], , [place], [address], Follow Up:1 WeekPN Insurance Providers Payer Name Payer Address Payer Phone Insured Name Patient Relati onship to Insured Coverage Start Date Coverage End Date [address] [phone] HANSA TONEY self
--- OUTSIDE RECORDS SUMMARY | 2021-04-27 17:13 | CCD ---
Author Author [facility] Organization [facility] Address Unknown Phone Unavailable Care Team Providers Care Anesthesiologist/Physician Name Role Phone Pam Peng Unavailable PROBLEMS Type Condition ICD9-CM Code [id number] Code Onset Dates Condition S tatus W/U Status Risk SNOMED Code Notes Problem Obesity, unspecified E66.9 Active confirmed 892085806 Problem Obesity affecting in third trimester O99 .213 Active confirmed 048465093015 Problem Supervision of other normal Z34.80 Ac tive confirm 658241905 Problem Obesity complicating , second trimester O 99.212 Active confirmed 509214931525 ALLERGIES Allergen (clinical drug ingredient) Drug/Non Drug Allergy do cumented on EMR Reaction Allergy Type Onset Date Status Penicillin Penicillin Hives Non Drug Allergy Active Ibuprofen Ibuprofen Itching Non Drug Allergy Active ENCOUNTERS from 1995 to 2021-02-26 Encounter Location Date Provider Diagnosis [facility] [address] [place] [address] [place] [address] Jan, Pam Peng Maternal care for ot her known or suspected poor growth, second trimester, not applicable or unspecified O36.5920 ; History of stillbirth in patient in second trimester, antepartum O09.292 ; Obesity affecting in third trimester O99.213 ; 23 weeks gestation of Z3A.23 ; affected by growth restriction O36.5990 ; History of pre-eclampsia Z87.59 ; History of stillbirth Z87.59 and Z34.90 IMMUNIZATIONS No Information SOCIAL HISTORY Tobacco Use: Social History Observation [...] FOR REFERRAL No Information VITAL SIGNS Weight 235 lbs Jan, Height 61 in Jan, BMI 44.403 kg/m2 Jan, Blood pressure systolic 118 mm Hg Jan, Blood pressure diastolic 78 mm Hg Jan, MEDICATIONS Medication SIG (Take, Route, Frequency, Duration) Notes Start Da te End Date Status Aspir-Low 81 MG 1 tablet Orally Once a day for 30 day(s) 1 2 Nov, 2020 Not-Taking Claritin 10 MG 1 tablet Orally Once a day Active metFORMIN HCl ER 500 MG 2 tab once daily Orally Twice a day for 30 day(s) Active 27-1 MG 1 tablet Orally Once a day Active Vitamin D 25 MCG (1000 UT) 1 tablet Orally Once a day Not-Taking PROCEDURES No Information RESULTS No Results REASON FOR VISIT 2WK PN MEDICAL (GENERAL) HISTORY Type Description Date Medical [...] Notes Treatment Notes Treatm ent Clinical Notes Jan, Maternal care for other know n or suspected poor growth, second trimester, not applicable or unspecified (ICD-10 - O36.5920) Jan, History of stillbirth in pre gnant patient in second trimester, antepartum (ICD-10 - O09.292) Jan, Obesity affecting in third tri [facility] meridianter (ICD-10 - O99.213) Jan, 23 weeks gestation of (ICD-10 - Z3A.23 ) Jan, affected by growth restr iction (ICD-10 - O36.5990) Jan, History of pre-eclampsia (ICD-10 - Z87.59) Jan, History of stillbirth (ICD-10 - Z87.59) Jan, (ICD-10 - Z34.90) PLAN OF TREATMENT Medication Medication Name Sig Start Date Stop Date metFORMIN HCl ER 500 MG 2 tab once daily Orally Twice a day for 30 day(s) Next Appt Details Provider Name:Sue Stuart Eng, 2021-02-28 08:00:00 AM, [address] [facility], , [place], [address], Insurance Providers Payer Name Payer Address Payer Phone Insured Name Patient Relati onship to Insured Coverage Start Date Coverage End Date [address] [phone] HANSA TONEY self
--- OUTSIDE RECORDS SUMMARY | 2021-04-27 17:13 | CCD ---
Author Author [facility] Organization [facility] Address Unknown Phone Unavailable Care Team Providers Care International Freight Forwarder Name Role Phone CollinRoyce Unavailable PROBLEMS Type Condition ICD9-CM Code [id number] Code Onset Dates Condition S tatus W/U Status Risk SNOMED Code Notes Problem Obesity, unspecified E66.9 Active confirmed 439753950 Problem Obesity affecting in third trimester O99 .213 Active confirmed 076207308862 Problem Supervision of other normal Z34.80 Ac tive confirm 028940677 Problem Obesity complicating , second trimester O 99.212 Active confirmed 973868053853 ALLERGIES Allergen (clinical drug ingredient) Drug/Non Drug Allergy do cumented on EMR Reaction Allergy Type Onset Date Status Penicillin Penicillin Hives Non Drug Allergy Active Ibuprofen Ibuprofen Itching Non Drug Allergy Active ENCOUNTERS from 1995 to 2021-02-13 Encounter Location Date Provider Diagnosis [facility] [address] [place] [address] [place] [address] Jan, Royce Polanco IMMUNIZATIONS No Information SOCIAL HISTORY Tobacco Use: [...] REASON FOR REFERRAL No Information VITAL SIGNS No information MEDICATIONS Medication SIG (Take, Route, Frequency, Duration) [...] Information RESULTS No Results REASON FOR VISIT sd ratio MEDICAL (GENERAL) HISTORY Type Description Date Medical History Gestational hypertension Medical History PCOS Medical History Anxiety/ Depression Surgical History Ankle left 2016 Surgical History Gall bladder 2016 Surgical History dental surgery-implant Hospitalization History Surgical related Hospitalization History Childbirth Goals Section No Information Health Concerns No Information MEDICAL EQUIPMENT No Information MENTAL STATUS No Information FUNCTIONAL STATUS No Information ASSESSMENTS No Information PLAN OF TREATMENT Medication Medication Name Sig Start Date Stop Date metFORMIN HCl ER 500 MG 2 tab once daily Orally Twice a day for 30 day(s) Next Appt Details Provider Name:Sue Eng, 2021-02-28 08:00:00 AM, [address] [facility], , [place], [address], Insurance Providers Payer Name Payer Address Payer Phone Insured Name Patient Relati onship to Insured Coverage Start Date Coverage End Date [address] [phone] HANSA TONEY self
--- OUTSIDE RECORDS SUMMARY | 2021-04-27 17:13 | CCD ---
Author Author [facility] Organization [facility] Address Unknown Phone Unavailable Care Team Providers Care Cardiology Rn Name Role Phone Royce Polanco Unavailable PROBLEMS Type Condition ICD9-CM Code [id number] Code Onset Dates Condition S tatus W/U Status Risk SNOMED Code Notes Problem Obesity, unspecified E66.9 Active confirmed 546356103 Problem Obesity affecting in third trimester O99 .213 Active confirmed 890843327025 Problem Supervision of other normal Z34.80 Ac tive confirm 996471827 Problem Obesity complicating , second trimester O 99.212 Active confirmed 565986724247 ALLERGIES Allergen (clinical drug ingredient) Drug/Non Drug Allergy do cumented on EMR Reaction Allergy Type Onset Date Status Penicillin Penicillin Hives Non Drug Allergy Active Ibuprofen Ibuprofen Itching Non Drug Allergy Active ENCOUNTERS from 1995 to 2021-02-12 Encounter Location Date Provider Diagnosis [facility] [address] [place] [address] [place] [address] 14 Jan, 2021 Royce Polanco Encounter for superv ision of normal in multigravida in second trimester Z34.82 and 25 weeks gestation of Z3A.25 IMMUNIZATIONS No Information SOCIAL HISTORY Tobacco Use: [...] FOR REFERRAL No Information VITAL SIGNS Weight 240.8 lbs 14 Jan, 2021 Weight-kg 109.22 kg 14 Jan, 2021 Height 61 in 14 Jan, 2021 BMI 45.499 kg/m2 Jan, Blood pressure systolic 120 mm Hg Jan, Blood pressure diastolic 78 [...] Information RESULTS No Results REASON FOR VISIT 2 WK PN MEDICAL (GENERAL) HISTORY Type Description Date [...] Treatment Notes Treatm ent Clinical Notes Jan, Encounter for supervision of normal in multigravida in second trimester (ICD-10 - Z34.82) Jan, 25 weeks gestation of (ICD-10 - Z3A.25 ) PLAN OF TREATMENT Medication Medication Name Sig Start Date Stop Date metFORMIN HCl ER 500 MG 2 tab once daily Orally Twice a day for 30 day(s) Treatment Notes Test Name Order Date PLZ OBS FOLLOW UP OR REPEAT EACH GES 2021-02-04 Next Appt Details Provider Name:Sue Stuart Eng, 2021-02-28 08:00:00 AM, [address] [facility], , [place], [address], Insurance Providers Payer Name Payer Address Payer Phone Insured Name Patient Relati onship to Insured Coverage Start Date Coverage End Date [place] [phone] HANSA TONEY self
--- OUTSIDE RECORDS SUMMARY | 2021-04-27 17:13 | CCD ---
Author Author [facility] Organization [facility] Address Unknown Phone Unavailable Care Team Providers Care [place] Adviser Name Role Phone Sue Eng Unavailable PROBLEMS Type Condition ICD9-CM Code [id number] Code Onset Dates Condition S tatus W/U Status Risk SNOMED Code Notes Problem Obesity, unspecified E66.9 Active confirmed 691852743 Problem Obesity affecting in third trimester O99 .213 Active confirmed 240506910339 Problem Supervision of other normal Z34.80 Ac tive confirm 076000566 Problem Obesity complicating , second trimester O 99.212 Active confirmed 757680991827 ALLERGIES Allergen (clinical drug ingredient) Drug/Non Drug Allergy do cumented on EMR Reaction Allergy Type Onset Date Status penicillin V Penicillin Hives Drug Allergy Active ibuprofen Ibuprofen([facility] Code:[address]-44) Itching Drug Allergy Active ENCOUNTERS from 1995 to 2021-03-12 Encounter Location Date Provider Diagnosis [facility] [phone] [place] [address] Feb, Sue Eng History of pre-eclam psia in prior , currently in third trimester O09.293 ; Intrauterine growth restriction affecting antepartum care of mother in third trimester, single or unspecified fetus O36.5930 ; 29 weeks gestation of Z3A.29 ; Encounter for immunization Z23 and History of stillbirth Z87.59 IMMUNIZATIONS Vaccine [...] FOR REFERRAL No Information VITAL SIGNS Weight 242.8 lbs Feb, Height 61 in Feb, BMI 45.877 kg/m2 Feb, Blood pressure systolic 130 mm Hg Feb, Blood pressure diastolic 76 mm Hg Feb, MEDICATIONS Medication SIG (Take, Route, Frequency, Duration) Notes Start Da te End Date Status 27-1 MG 1 tablet Orally Once a day Active Omeprazole 20 MG 1 capsule 30 minutes before morning meal Orally Once a day for 30 day(s) Feb, Active Aspir-Low 81 MG 1 tablet Orally Once a day for 30 day(s) 1 Nov, Not-Taking Claritin 10 MG 1 tablet Orally Once a day Active metFORMIN HCl ER 500 MG 2 tab once daily Orally Twice a day for 30 day(s) Active Vitamin D 25 MCG (1000 UT) 1 tablet Orally Once a day Not-Taking PROCEDURES from 1995 to 2021-03-12 Procedure Date Ordered Result Body Site non-stress test 2021-02-28 N/A Imm: Boostrix 0.5mL IM TDAP 2021-02-28 N/A RESULTS Component Value Reference Range WWBC BPP W/O NON STRESS TEST Reviewed date:03/07/2021 12:20:42 Interpretation: Performing Lab:[facility],[address] [place]], ,[place] [address] REASON FOR VISIT 2 WK PN MEDICAL (GENERAL) HISTORY Type Description Date Medical History Gestational hypertension Medical History PCOS Medical History Anxiety/ Depression Surgical History Ankle left 2016 Surgical History Gall bladder 2017 Surgical History dental surgery-implant Hospitalization History Surgical related Hospitalization History Childbirth Goals Section No Information Health Concerns No Information MEDICAL EQUIPMENT No Information MENTAL STATUS No Information FUNCTIONAL STATUS No Information ASSESSMENTS Encounter Date Diagnosis Assessment Notes Treatment Notes Treatm ent Clinical Notes Feb, History of pre-eclampsia in prior , currently in third trimester (ICD-10 - O09.293) Feb, Intrauterine growth restrict ion affecting antepartum care of mother in third trimester, single or unspecified fetus (ICD-10 - O36.5930) Feb, 29 weeks gestation of (ICD-10 - Z3A.29 ) Feb, Encounter for immunization (ICD-10 - Z23) Feb, History of stillbirth (ICD-10 - Z87.59) PLAN OF TREATMENT Treatment Notes Test Name Order Date WWBC OBS LIMITED US 2021-02-28 Next Appt Details 1 Week Reason:COB NST Provider Name:Sue Eng, 2021-03-13 10:00:00 AM, [address] [place] [address], [address] [place] [address], [place], [address], Provider Name:Paulette Brunson, 2021-03-20 11:00:00 AM, [address] [place] [address], [address] [place] [address], [place], [address], Provider Name:Sue Eng, 2021-03-27 01:00:00 PM, [address] [place] [address], [address] [place] [address], [place], [address], Provider Name:Royce Polanco, 2021-04-03 10:15:00 AM, [address] [place] [address], [address] [place] [address], [place], [address], Provider Name:Liam Garcia, 11:00:00 AM, [address] [place] [address], [address] [place] [address], [place], [address], Provider Name:Liam Garcia, 09:40:00 AM, [address] [place] [address], [address] [place] [address], [place], [address], Provider Name:Sue Eng, 2021-04-24 10:40:00 AM, [address] [place] [address], [address] [place] [address], [place], [address], Follow Up:1 WeekCOB NST Insurance Providers Payer Name Payer Address Payer Phone Insured Name Patient Relati onship to Insured Coverage Start Date Coverage End Date [place] [phone] HANSA TONEY self
--- OUTSIDE RECORDS SUMMARY | 2021-04-27 17:13 | CCD ---
Author Author [facility] Organization [facility] Address Unknown Phone Unavailable Care Team Providers Care Nursing Associate Name Role Phone Royce Polanco Unavailable PROBLEMS Type Condition ICD9-CM Code QDE35-AP Code Onset Dates Condition S tatus W/U Status Risk SNOMED Code Notes Problem Obesity, unspecified E66.9 Active confirmed 024035328 Problem Obesity affecting in third trimester O99 .213 Active confirmed 021300063850 Problem Supervision of other normal Z34.80 Ac tive confirm 670399049 Problem Obesity complicating , second trimester O 99.212 Active confirmed 163111439423 ALLERGIES Allergen (clinical drug ingredient) Drug/Non Drug Allergy do cumented on EMR Reaction Allergy Type Onset Date Status penicillin V Penicillin Hives Drug Allergy Active ibuprofen Ibuprofen([facility] Code:[address]-39) Itching Drug Allergy Active ENCOUNTERS from 1995 to 2021-04-09 Encounter Location Date Provider Diagnosis [facility] [address] [place] [address] [place] [address] Mar, Royce Polanco Intrauterine growth restriction affecting antepartum care of mother in third trimester, single or unspecified fetus O36.5930 and 33 weeks gestation of Z3A.33 IMMUNIZATIONS Vaccine Route Administration Date Status TDAP [...] FOR REFERRAL No Information VITAL SIGNS Weight 245.4 lbs Mar, Height 61 in Mar, BMI 46.368 kg/m2 Mar, Blood pressure systolic 124 mm Hg Mar, Blood pressure diastolic 80 mm Hg Mar, MEDICATIONS Medication SIG (Take, Route, Frequency, Duration) Notes Start Da te End Date Status Aspir-Low 81 MG 1 tablet Orally Once a day for 30 day(s) 1 Nov, Not-Taking Claritin 10 MG 1 tablet Orally Once a day Active 27-1 MG 1 tablet Orally Once a day Active Omeprazole 20 MG 1 capsule 30 minutes before morning meal Orally Once a day for 30 day(s) Feb, Active Vitamin D 25 MCG (1000 UT) 1 tablet Orally Once a day Not-Taking metFORMIN HCl ER 500 MG 2 tab once daily Orally Twice a day for 30 day(s) Active PROCEDURES from 1995 to 2021-04-09 Procedure Date Ordered Result Body Site non-stress test 2021-04-03 N/A RESULTS Component Value Reference Range URINE CULTURE Reviewed date:04/06/2021 21:22:36 Interpretation: Performing Lab:[facility], [facility] [address] [address] , ,[place] [address] REASON FOR VISIT 1 WK PN/NST MEDICAL [...] Treatment Notes Treatm ent Clinical Notes Mar, Intrauterine growth restrict ion affecting antepartum care of mother in third trimester, single or unspecified fetus (ICD-10 - O36.5930) Mar, 33 weeks gestation of (ICD-10 - Z3A.33 ) PLAN OF TREATMENT Next Appt Details Provider Name:Liam Garcia, 11:00:00 AM, [address], [place], [address], Provider Name:Liam Garcia, 09:40:00 AM, [address] [place] [address], , [place], [address], Provider Name:Sue Eng, 2021-04-24 10:40:00 AM, [address] [place] [address], , [place], [address], Insurance Providers Payer Name Payer Address Payer Phone Insured Name Patient Relati onship to Insured Coverage Start Date Coverage End Date [address] [phone] HANSA TONEY self
--- OUTSIDE RECORDS SUMMARY | 2021-04-27 17:13 | CCD ---
Author Author [facility] Organization [facility] Address Unknown Phone Unavailable Care Team Providers Care After School Program Teacher Name Role Phone Sue Eng Unavailable PROBLEMS Type Condition ICD9-CM Code DQD86-MG Code Onset Dates Condition S tatus W/U Status Risk SNOMED Code Notes Problem Obesity, unspecified E66.9 Active confirmed 147878661 Problem Obesity affecting in third trimester O99 .213 Active confirmed 673188146378 Problem Supervision of other normal Z34.80 Ac tive confirm 863128454 Problem Obesity complicating , second trimester O 99.212 Active confirmed 363721176599 ALLERGIES Allergen (clinical drug ingredient) Drug/Non Drug Allergy do cumented on EMR Reaction Allergy Type Onset Date Status penicillin V Penicillin Hives Drug Allergy Active ibuprofen Ibuprofen([facility] Code:[address]-53) Itching Drug Allergy Active ENCOUNTERS from 1995 to 2021-03-18 Encounter Location Date Provider Diagnosis [facility] [address] [place] [address] [place] [address] Feb, Sue Eng IMMUNIZATIONS Vaccine Route Administration Date Status TDAP [...] Notes Start Da te End Date Status Claritin 10 MG 1 tablet Orally Once a day Active Aspir-Low 81 MG 1 tablet Orally Once a day for 30 day(s) 1 2 Nov, 2020 Not-Taking Omeprazole 20 MG 1 capsule 30 minutes before morning meal Orally Once a day for 30 day(s) Feb, Active 27-1 MG 1 tablet Orally Once a day Active Vitamin D 25 MCG (1000 UT) 1 tablet Orally Once a day Not-Taking metFORMIN HCl ER 500 MG 2 tab once daily Orally Twice a day for 30 day(s) Active PROCEDURES No Information RESULTS No Results REASON FOR VISIT f/u sono MEDICAL (GENERAL) HISTORY Type Description Date Medical [...] Information ASSESSMENTS No Information PLAN OF TREATMENT Next Appt Details Provider Name:Paulette Brunson, 2021-03-20 11:00:00 AM, [address] [place] [address], [place], [place], [address] [place] [address], [address] [place] [address] Provider Name:Sue Eng, 2021-03-27 01:00:00 PM, [address] [place] [address], [place], [place], [address] [place] [address], Provider Name:Royce Polanco, 2021-04-03 10:15:00 AM, [address] [place] [address], [place], [address], Provider Name:Liam Garcia, 11:00:00 AM, [address] [place] [address], [address] [place] [address], Provider Name:Liam Garcia, 09:40:00 AM, [address] [place] [address], [place], [address] [place] [address], Provider Name:Sue Eng, 2021-04-24 10:40:00 AM, [address] [facility], , [place], [address], Insurance Providers Payer Name Payer Address Payer Phone Insured Name Patient Relati onship to Insured Coverage Start Date Coverage End Date [address] [phone] HANSA TONEY self
--- OUTSIDE RECORDS SUMMARY | 2021-04-27 17:13 | CCD ---
Author Author [facility] Organization [facility] Address Unknown Phone Unavailable Care Team Providers Care Strategic Analyst Name Role Phone Titus Padilla Unavailable PROBLEMS Type Condition ICD9-CM Code [id number] Code Onset Dates Condition S tatus W/U Status Risk SNOMED Code Notes Problem Obesity, unspecified E66.9 Active confirmed 890156244 Problem Obesity affecting in third trimester O99 .213 Active confirmed 971417475969 Problem Supervision of other normal Z34.80 Ac tive confirm 343287268 Problem Obesity complicating , second trimester O 99.212 Active confirmed 041593022915 ALLERGIES Allergen (clinical drug ingredient) Drug/Non Drug Allergy do cumented on EMR Reaction Allergy Type Onset Date Status Penicillin Penicillin Hives Non Drug Allergy Active Ibuprofen Ibuprofen Itching Non Drug Allergy Active ENCOUNTERS from 1995 to 2021-02-12 Encounter Location Date Provider Diagnosis [facility] [address] [place] [address] [place] [address] Jan, Padilla Qureshi IMMUNIZATIONS No Information SOCIAL HISTORY Tobacco Use: [...] Information RESULTS No Results REASON FOR VISIT Rx clarification MEDICAL (GENERAL) HISTORY Type Description Date Medical [...] Provider Name:Sue Eng, 2021-02-28 08:00:00 AM, [address] [facility], , [place], [address], Insurance Providers Payer Name Payer Address Payer Phone Insured Name Patient Relati onship to Insured Coverage Start Date Coverage End Date [place] [phone] HANSA TONEY self
--- OUTSIDE RECORDS SUMMARY | 2021-04-27 17:13 | CCD ---
Author Author [facility] Organization [facility] Address Unknown Phone Unavailable Care Team Providers Care Tag Stringer Name Role Phone Sue Eng Unavailable PROBLEMS Type Condition ICD9-CM Code VMY41-SZ Code Onset Dates Condition S tatus W/U Status Risk SNOMED Code Notes Problem Obesity, unspecified E66.9 Active confirmed 702187029 Problem Obesity affecting in third trimester O99 .213 Active confirmed 834569181657 Problem Supervision of other normal Z34.80 Ac tive confirm 339213432 Problem Obesity complicating , second trimester O 99.212 Active confirmed 432252278801 ALLERGIES Allergen (clinical drug ingredient) Drug/Non Drug Allergy do cumented on EMR Reaction Allergy Type Onset Date Status penicillin V Penicillin Hives Drug Allergy Active ibuprofen Ibuprofen([facility] Code:[address]-90) Itching Drug Allergy Active ENCOUNTERS from 1995 to 2021-04-03 Encounter Location Date Provider Diagnosis [facility] [address] [place] [address] [place] [address] Feb, Sue Eng Obesity affecting pr egnancy in third trimester O99.213 ; Intrauterine growth restriction affecting antepartum care of mother in third trimester, single or unspecified fetus O36.5930 ; Obesity, unspecified E66.9 ; 30 weeks gestation of Z3A.30 and History of stillbirth Z87.59 IMMUNIZATIONS Vaccine [...] FOR REFERRAL No Information VITAL SIGNS Weight 248.6 lbs Feb, Height 61 in Feb, BMI 46.973 kg/m2 Feb, Blood pressure systolic 112 mm Hg Feb, Blood pressure diastolic 70 mm Hg Feb, MEDICATIONS Medication SIG (Take, [...] 30 day(s) Active PROCEDURES from 1995 to 2021-04-03 Procedure Date Ordered Result Body Site non-stress test 2021-03-13 N/A RESULTS No Results REASON FOR VISIT 1 WK PN NST MEDICAL (GENERAL) HISTORY Type Description Date Medical [...] Treatment Notes Treatm ent Clinical Notes Feb, Obesity affecting in third tri mester (ICD-10 - O99.213) Feb, Intrauterine growth restrict ion affecting antepartum care of mother in third trimester, single or unspecified fetus (ICD-10 - O36.5930) Feb, Obesity, unspecified (ICD-10 - E66.9) Feb, 30 weeks gestation of (ICD-10 - Z3A.30 ) Feb, History of stillbirth (ICD-10 - Z87.59) PLAN OF TREATMENT Next Appt Details 1 Week Reason:COB NST Provider Name:Liam Garcia, 11:00:00 AM, [address] [place] [address], , [place], [address], Provider Name:Liam Garcia, 09:40:00 AM, [address] [place] [address], , [place], [address], Provider Name:Sue Eng, 2021-04-24 10:40:00 AM, [address] [place] [address], , [place], [address], Follow Up:1 WeekCOB NST Insurance Providers Payer Name Payer Address Payer Phone Insured Name Patient Relati onship to Insured Coverage Start Date Coverage End Date [address] [phone] HANSA TONEY self
--- OUTSIDE RECORDS SUMMARY | 2021-04-27 17:13 | CCD ---
Author Author [facility] Organization [facility] Address Unknown Phone Unavailable Care Team Providers Care Maintenance Analyst Name Role Phone Velasquez Sue Unavailable PROBLEMS Type Condition ICD9-CM Code [id number] Code Onset Dates Condition S tatus W/U Status Risk SNOMED Code Notes Problem Obesity, unspecified E66.9 Active confirmed 309569789 Problem Obesity affecting in third trimester O99 .213 Active confirmed 079173089139 Problem Supervision of other normal Z34.80 Ac tive confirm 296144274 Problem Obesity complicating , second trimester O 99.212 Active confirmed [id number] ALLERGIES Allergen (clinical drug ingredient) Drug/Non Drug Allergy do cumented on EMR Reaction Allergy Type Onset Date Status penicillin V Penicillin Hives Drug Allergy Active ibuprofen Ibuprofen([facility] Code:[address]-46) Itching Drug Allergy Active ENCOUNTERS from 1995 to 2021-04-21 Encounter Location Date Provider Diagnosis [facility] [address] [place] [address] [place] [address] Mar, Sue Eng Intrauterine growth restriction (IUGR) affecting care of mother, third trimester, single gestation O36.5930 and 33 weeks gestation of Z3A.33 [...] FOR REFERRAL No Information VITAL SIGNS Weight 249 lbs Mar, Weight-kg 112.94 kg Mar, Height 61 in Mar, BMI 47.048 kg/m2 Mar, Blood pressure systolic 126 mm Hg Mar, Blood pressure diastolic 80 [...] Results REASON FOR VISIT 1 WK PN MEDICAL (GENERAL) HISTORY Type Description [...] Clinical Notes Mar, Intrauterine growth restrict ion (IUGR) affecting care of mother, third trimester, single gestation (ICD-10 - O36.5930) Mar, 33 weeks gestation of (ICD-10 - Z3A.33 ) PLAN OF TREATMENT Next Appt Details 1 Week Reason:COB Provider Name:Sue Eng, 2021-04-24 10:40:00 AM, [address] [place] [address] , [place], [address], Provider Name:Liam Garcia, 07:30:00 AM, [address] [place] [address] , [place], [address], Provider Name:Sue Eng, 2021-04-28 07:30:00 AM, [address] [place] [address], , [place], [address], Provider Name:Liam Garcia, 09:00:00 AM, [address] [place] [address], , [place], [address], Provider Name:Liam Garcia, 10:20:00 AM, [address] [place] [address], , [place], [address], Follow Up:1 WeekCOB Insurance Providers Payer Name Payer Address Payer Phone Insured Name Patient Relati onship to Insured Coverage Start Date Coverage End Date [address] [phone] HANSA TONEY self
--- OUTSIDE RECORDS SUMMARY | 2021-04-27 17:13 | CCD ---
Author Author [facility] Organization [facility] Address Unknown Phone Unavailable Care Team Providers Care Tube Puller Name Role Phone CollinRoyce Unavailable PROBLEMS Type Condition ICD9-CM Code [id number] Code Onset Dates Condition S tatus W/U Status Risk SNOMED Code Notes Problem Obesity, unspecified E66.9 Active confirmed 431988992 Problem Obesity affecting in third trimester O99 .213 Active confirmed 916490302313 Problem Supervision of other normal Z34.80 Ac tive confirm 323161708 Problem Obesity complicating , second trimester O 99.212 Active confirmed 425198690924 ALLERGIES Allergen (clinical drug ingredient) Drug/Non Drug Allergy do cumented on EMR Reaction Allergy Type Onset Date Status penicillin V Penicillin Hives Drug Allergy Active ibuprofen Ibuprofen([facility] Code:[address]-55) Itching Drug Allergy Active ENCOUNTERS from 1995 to 2021-04-24 Encounter Location Date Provider Diagnosis [facility] [address] [place] [address] [place] [address] Apr, Royce Polanco IMMUNIZATIONS Vaccine Route Administration Date Status TDAP [...] Notes Start Da te End Date Status Omeprazole 20 MG 1 capsule 30 minutes before morning meal Orally Once a day for 30 day(s) Feb, Active Claritin 10 MG 1 tablet Orally Once a day Active metFORMIN HCl ER 500 MG 2 tab once daily Orally Twice a day for 30 day(s) Active Colace 100 MG 1 capsule as needed Orally Once a day Active 27-1 MG 1 tablet Orally Once a day Active PROCEDURES No Information RESULTS No Results REASON FOR VISIT IOL/IUGR MEDICAL (GENERAL) HISTORY Type Description Date Medical [...] TREATMENT Next Appt Details Provider Name:Liam Garcia, 07:30:00 AM, [address] [place] [address] Provider Name:Sue Eng, 2021-04-28 07:30:00 AM, [address] [place] [address], [place], [place], [address] [place] [address], [address] [place] [address] Provider Name:Pam Peng, 2021-04-23 0 11:20:00 AM, [address] [place] [address], [place], [place], [address] [place] [address], [address] [place] [address] Provider Name:Paulette Brunson, 2021-05-08 01:40:00 PM, [address] [place] [address], [place], [place], [address] [place] [address], [address] [place] [address] Provider Name:Liam Garcia, 09:00:00 AM, [address] [place] [address], [place], [place], [address] [place] [address], Provider Name:Liam Garcia, 2022-01- 26 10:20:00 AM, [address] [facility], , [place], [address], Insurance Providers Payer Name Payer Address Payer Phone Insured Name Patient Relati onship to Insured Coverage Start Date Coverage End Date [place] [phone] HANSA TONEY self
--- OUTSIDE RECORDS SUMMARY | 2021-04-27 17:13 | CCD ---
Author Author [facility] Organization [facility] Address Unknown Phone Unavailable Care Team Providers Care Hosiery Knitter Name Role Phone Liam Garcia Unavailable PROBLEMS Type Condition ICD9-CM Code [id number] Code Onset Dates Condition S tatus W/U Status Risk SNOMED Code Notes Problem Obesity, unspecified E66.9 Active confirmed 189912771 Problem Obesity affecting in third trimester O99 .213 Active confirmed 815576140453 Problem Supervision of other normal Z34.80 Ac tive confirm 419183218 Problem Obesity complicating , second trimester O 99.212 Active confirmed 008931848269 ALLERGIES Allergen (clinical drug ingredient) Drug/Non Drug Allergy do cumented on EMR Reaction Allergy Type Onset Date Status penicillin V Penicillin Hives Drug Allergy Active ibuprofen Ibuprofen([facility] Code:[address]-27) Itching Drug Allergy Active ENCOUNTERS from 1995 to 2021-04-15 Encounter Location Date Provider Diagnosis [facility] [address] [place] [address] [place] [address] Mar, Liam Garcia Intrauterine growth restriction affecting antepartum care of mother in third trimester, single or unspecified fetus O36.5930 ; Obesity affecting in third trimester O99.213 ; Prior poor obstetrical history in third trimester, antepartum O09.293 ; 34 weeks gestation of Z3A.34 and History of stillbirth Z87.59 IMMUNIZATIONS Vaccine [...] FOR REFERRAL No Information VITAL SIGNS Weight 248 lbs Mar, Weight-kg 112.49 kg Mar, Height 61 in Mar, BMI 46.859 kg/m2 Mar, Blood pressure systolic 128 mm Hg Mar, Blood pressure diastolic 80 mm Hg Mar, MEDICATIONS Medication SIG (Take, Route, Frequency, Duration) Notes Start Da te End Date Status Vitamin D 25 MCG (1000 UT) 1 [...] or unspecified fetus (ICD-10 - O36.5930) Mar, Obesity affecting in third tri mester (ICD-10 - O99.213) Mar, Prior poor obstetrical histo ry in third trimester, antepartum (ICD- 10 - O09.293) Mar, 34 weeks gestation of (ICD-10 - Z3A.34 ) Mar, History of stillbirth (ICD-10 - Z87.59) PLAN OF TREATMENT Next Appt Details 1 Week Reason:- Complicated OB follow up Provider Name:Liam Garcia, 09:40:00 AM, [address] [place] [address], , [place], [address], Provider Name:Sue Eng, 2021-04-24 10:40:00 AM, [address] [place] [address], , [place], [address], Provider Name:Liam Garcia, 07:30:00 AM, [address] [place] [address], [address] [place] [address], [place], [address], Provider Name:Sue Eng, 2021-04-28 07:30:00 AM, [address] [place] [address], [address] [place] [address], [place], [address], Provider Name:Liam Garcia, 09:00:00 AM, [address] [place] [address], [address] [place] [address], [place], [address], Provider Name:Liam Garcia, 10:20:00 AM, [address] [place] [address], [address] [place] [address], [place], [address], Follow Up:1 Week- Complicated OB follow up Insurance Providers Payer Name Payer Address Payer Phone Insured Name Patient Relati onship to Insured Coverage Start Date Coverage End Date [address] [phone] HANSA TONEY self
--- OUTSIDE RECORDS SUMMARY | 2021-04-27 17:13 | CCD ---
Author Author [facility] Organization [facility] Address Unknown Phone Unavailable Care Team Providers Care Panel Monitor Name Role Phone Liam Garcia Unavailable PROBLEMS Type Condition ICD9-CM Code SYP98-AW Code Onset Dates Condition S tatus W/U Status Risk SNOMED Code Notes Problem Obesity, unspecified E66.9 Active confirmed 094552007 Problem Obesity affecting in third trimester O99 .213 Active confirmed 281980201352 Problem Supervision of other normal Z34.80 Ac tive confirm 702079629 Problem Obesity complicating , second trimester O 99.212 Active confirmed 704155399087 ALLERGIES Allergen (clinical drug ingredient) Drug/Non Drug Allergy do cumented on EMR Reaction Allergy Type Onset Date Status penicillin V Penicillin Hives Drug Allergy Active ibuprofen Ibuprofen([facility] Code:[address]-62) Itching Drug Allergy Active ENCOUNTERS from 1995 to 2021-04-21 Encounter Location Date Provider Diagnosis [facility] [address] [place] [address] [place] [address] Mar, Liam Garcia IMMUNIZATIONS Vaccine Route Administration Date Status TDAP [...] Information RESULTS No Results REASON FOR VISIT 04/28/21 SURG AUTH MEDICAL (GENERAL) HISTORY Type Description Date Medical [...] PLAN OF TREATMENT Next Appt Details Provider Name:Sue Eng, 2021-04-24 10:40:00 AM, [address] [place] [address], [place], [place], [address] [place] [address], [address] [place] [address] Provider Name:Liam Garcia, 07:30:00 AM, [address] [place] [address], [place], [address], Provider Name:Sue Eng, 2021-04-28 07:30:00 AM, [address] [place] [address], [place], [address], Provider Name:Liam Garcia, 09:00:00 AM, [address] [place] [address], [place], [address], Provider Name:Liam Garcia, 10:20:00 AM, [address] [place] [address], [place], [address], Insurance Providers Payer Name Payer Address Payer Phone Insured Name Patient Relati onship to Insured Coverage Start Date Coverage End Date [place] [phone] HANSA TONEY self
--- OUTSIDE RECORDS SUMMARY | 2021-04-27 17:13 | CCD | Continuity of Care Document ---
Author Organization Unknown Address Unknown Phone Unavailable Care Team Providers Care Tobacco Sample Puller Name Role Phone Dai Erickson D.O. AUTM [phone] Wally Mitchell M.D. AUTM [phone] Problems Active Problems Provider Date Polycystic ovary syndrome JACK Banegas Onset: 021 Migraine without aura, not refractory JACK Banegas On set: 10/07/2020 Female infertility JACK Banegas Onset: 10/07/2020 Social History Type Date Description Comments Sex Unknown ETOH Use Denies alcohol use Tobacco Use Start: Unknown End: Unknown Patient is a former smoker Recreational Drug Use Denies Drug Use Exercise Type/Frequency Cardio 4x week Sun Exposure Sunscreen Sometimes Seat Belt/Car Seat Always uses seat belt Allergies and adverse reactions Active Allergies Criticality Reaction | Severity Comments Date Penicillin Unable to assess criticality 10/07/2020 Ibuprofen Unable to assess criticality 10/07/2020 Medications Active Medications SIG Qnty Indications Ordering Provide r Date Metformin HCL 500mg Tablets 1 by mouth twice a day with meal E28.2 Unknown Tablets 1 by steve th every day Unknown Omeprazole 20mg Capsules DR 1 by mouth every day K21.9 Unknown Claritin 10mg Tablets 1 by mouth every day J30.9 Unknown Z00.129 Immunizations Description No Information Available Vital Signs Date Vital Result Comment 10/07/2020 11:14am BP Systolic 120 mmHg BP Diastolic 68 mmHg Height 61 inches 5'1" Weight 248.00 lb BMI (Body Mass Index) 46.9 kg/m2 Heart Rate 105 /min Respiratory Rate 14 /min Body Temperature 99.3 F O2 % BldC Oximetry 99 % Cooter Body Weight 105 lb Results Test Acquired Date Facility Test Result H/L Range Note Urine Culture 04/04/2021 [facility] Outpatient Testi ng (Registration) [address] [place] [address] [phone] Urine Culture FULL REPORT IN L <SEE NOTE> Normal 1 Complete Blood Count 12/02/2020 [facility] Outpatient Test ing (Registration) [address] [place] [address] [phone] White Blood Count 6.8 10 Normal 4.0-10.0 Red Blood Count 3.96 10 Low 4.00-5.40 Hemoglobin 11.9 g/dL Low 12.0-15.5 Hematocrit 36.7 % Normal 36.0-47.0 Mean Corpuscular Volume 92.7 fl Normal 80.0-96.0 Mean Corpuscular Hemoglobin 30.1 pg Normal 27.0-33.0 Mean Corpuscular HGB Conc 32.4 g/dL Normal 32.0-36.5 Red Cell Distribution Width 12.3 % Normal 11.5-14.5 Platelet Count, Automated 222 10 Normal 150-450 Nucleated Red Blood Cell % 0.0 % Normal 0-0 Type & Screen 1 - Includes Blo 12/02/2020 [facility] Outpatient Testing (Registration) [address] [place] [address] [phone] Blood Type B POSITIVE Normal AB Screen PNP1 Gel (Vis) NEGATIVE Normal Laboratory test finding 12/02/2020 [facility] Outpatient T esting (Registration) [address] [place] [address] [phone] Hepatitis C Virus Manisha Index 0.0 INDEX Normal <0.8 2 HBsAg NEGATIVE Normal Negative Syphilis NONREACTIVE Normal Nonreactive Rubella Immune Status IMMUNE Normal Immune 3 HIV 1&2 Screen Centaur NEGATIVE Normal Negative 4 GC & Chlamydia By Amp 12/02/2020 [facility] Outpatient Anali ting (Registration) [address] [place] [address] [phone] Chlamydia Dna Amplification NEGATIVE Normal Nega tive 5 GC Dna Amplification NEGATIVE Normal Negative 6 Laboratory test finding 12/02/2020 [facility] Outpatient T esting (Registration) [address] [place] [address] [phone] Urine Culture FULL REPORT IN L <SEE NOTE> Normal 7 1 FULL REPORT IN LAB NOTES ( [facility] and [facility]). NO GROWTH CLINICAL SIGNIFICANCE 1 ORGANISM 2 Negative Not infected with HCV, unless recent infection is suspected or other evidence exists to indicate HCV infection. 3 THE RUBELLA RESULT WAS OBTAI LYUDMILA WITH THE CENTAUR RUBELLA IGG ASSAY. IgG VALUES FROM ANOTHER MANUFACTURERS' METHOD MAY NOT BE USED INTERCHANGEABLY. MAGNITUDE OF LEVEL CANNOT BE CORRELATED TO AN ENDPOINT TITER. SUSCEPTIBLE 0.00-5.00 IU/ML EQUIVOCAL 5.01-9.99 IU/ML IMMUNE > 10.00 IU/ML 4 This assay was performed uti lizing a chemiluminescent principle technique for the simultaneous qualitative detection of HIV-1 p24 antigen & antibodies to HIV-1 (including group O) & HIV-2 using the Casabu XP system. The estimated 95% confidence interval for sensitivity of this antigen/antibody combination assay for HIV-1&2 antibodies is 99.7-100% and HIV p24 antigen is 89.4-99.9%. The estimated 95% confidence interval for specificity of this antigen/antibody combination in low risk populations is 99.6-99.8%. 5 A negative test result does not exclude the possibility of infection because test results may be affected by improper specimen collection, technical error, specimen mix-up, concurrent antibiotic therapy, or the number of organisms in the specimen which may be below the sensitivity of the test. 6 A negative test result does not exclude the possibility of infection because test results may be affected by improper specimen collection, technical error, specimen mix-up, concurrent antibiotic therapy, or the number of organisms in the specimen which may be below the sensitivity of the test. 7 FULL REPORT IN LAB NOTES ([facility] and [facility]). NO GROWTH CLINICAL SIGNIFICANCE 2 OR MORE ORGANISMS Procedures Date Code Description Status 10/07/2020 98[address] Office/Outpatient [facility] 30 -44 Minutes Completed Medical Devices Description No Information Available Encounters Type Date Location Provider Dx Diagnosis Office Visit 10/07/2020 11:00a [facility] JACK Delgado E28.2 Polycystic ovarian syndrome G43.009 Migraine w/o aura, not intra ctable, w/o status migrainosus N97.9 Female infertility, unspecif ied Z3A.01 Less than 8 weeks gestation of Z33.1 state, incidental E55.9 Vitamin D deficiency, unspec ified Assessments Date Code Description Provider 10/07/2020 E28.2 Polycystic ovarian syndrome JACK Dyer 10/07/2020 G43.009 Migraine without aur a, not intractable, without status migrainosus JACK Banegas 10/07/2020 N97.9 Female infertility, unspecified JACK Banegas 10/07/2020 Z3A.01 Less than 8 weeks gestation of p regnancy JACK Banegas 10/07/2020 Z33.1 state, incidental JACK Lopez 10/07/2020 E55.9 Vitamin D deficiency, unspecifie d JACK Banegas Plan of Treatment No Information Available Functional Status Description No Information Available Mental Status Description No Information Available Referrals Description No Information Available
--- OUTSIDE RECORDS SUMMARY | 2021-04-27 17:13 | CCD ---
Author Author [facility] Organization [facility] Address Unknown Phone Unavailable Care Team Providers Care Optometry Professor Name Role Phone Sue Eng Unavailable PROBLEMS Type Condition ICD9-CM Code IBT24-TR Code Onset Dates Condition S tatus W/U Status Risk SNOMED Code Notes Problem Obesity, unspecified E66.9 Active confirmed 499425351 Problem Obesity affecting in third trimester O99 .213 Active confirmed 595199815304 Problem Supervision of other normal Z34.80 Ac tive confirm 063385127 Problem Obesity complicating , second trimester O 99.212 Active confirmed 432336558875 ALLERGIES Allergen (clinical drug ingredient) Drug/Non Drug Allergy do cumented on EMR Reaction Allergy Type Onset Date Status penicillin V Penicillin Hives Drug Allergy Active ibuprofen Ibuprofen([facility] Code:[address]-49) Itching Drug Allergy Active ENCOUNTERS from 1995 to 2021-04-24 Encounter Location Date Provider Diagnosis [facility] [address] [place] [address] [place] [address] Apr, Sue Eng IMMUNIZATIONS Vaccine Route Administration Date [...] Information RESULTS No Results REASON FOR VISIT appt MEDICAL (GENERAL) HISTORY Type Description Date Medical [...] Appt Details Provider Name:Liam Garcia, 07:30:00 AM, [address] [place] [address] Provider Name:Sue Eng, 2021-04-28 07:30:00 AM, [address] [place] [address], [place], [place], [address] [place] [address], [address] [place] [address] Provider Name:Pam Peng, 2021-04-23 0 11:20:00 AM, [address] [place] [address], [place], [place], [address] [place] [address], [address] [place] [address] Provider Name:Paulette Brunson, 2021-05-08 01:40:00 PM, [address] [place] [address], [place], [place], [address] [place] [address], [address] [place] [address] Provider Name:Liam Garcia, 09:00:00 AM, [address] [place] [address], [place], [address] [place] [address], Provider Name:Liam Garcia, 10:20:00 AM, [address] [facility], , [place], [address], Insurance Providers Payer Name Payer Address Payer Phone Insured Name Patient Relati onship to Insured Coverage Start Date Coverage End Date [place] [phone] HANSA TONEY self
--- OUTSIDE RECORDS SUMMARY | 2021-04-27 17:13 | CCD ---
Author Author [facility] Organization [facility] Address Unknown Phone Unavailable Care Team Providers Care Ripsawyer Name Role Phone Sue Eng Unavailable PROBLEMS Type Condition ICD9-CM Code [id number] Code Onset Dates Condition S tatus W/U Status Risk SNOMED Code Notes Problem Obesity, unspecified E66.9 Active confirmed 052336047 Problem Obesity affecting in third trimester O99 .213 Active confirmed 895158614090 Problem Supervision of other normal Z34.80 Ac tive confirm 434880010 Problem Obesity complicating , second trimester O 99.212 Active confirmed 085731948273 ALLERGIES Allergen (clinical drug ingredient) Drug/Non Drug Allergy do cumented on EMR Reaction Allergy Type Onset Date Status penicillin V Penicillin Hives Drug Allergy Active ibuprofen Ibuprofen([facility] Code:[address]-02) Itching Drug Allergy Active ENCOUNTERS from 1995 to 2021-03-24 Encounter Location Date Provider Diagnosis [facility] [address] [place] [address] [place] [address] 14 Feb, 2021 Sue Eng Supervision of stefanie l intrauterine in multigravida in third trimester Z34.83 and 29 weeks gestation of Z3A.29 IMMUNIZATIONS Vaccine Route Administration Date Status TDAP [...] FOR REFERRAL No Information VITAL SIGNS Weight 245.2 lbs Feb, Height 61 in Feb, BMI 46.33 kg/m2 Feb, Blood pressure systolic 130 mm Hg Feb, Blood pressure diastolic 82 mm Hg Feb, MEDICATIONS Medication SIG (Take, Route, Frequency, Duration) Notes Start Da te End Date Status 27-1 MG 1 tablet Orally Once a day Active Vitamin D 25 MCG (1000 UT) 1 tablet Orally Once a day Not-Taking Aspir-Low 81 MG 1 tablet Orally Once a day for 30 day(s) Nov, Not-Taking metFORMIN HCl ER 500 MG 2 tab once daily Orally Twice a day for 30 day(s) Active Claritin 10 MG 1 tablet Orally Once a day Active Omeprazole 20 MG 1 capsule 30 minutes before morning meal Orally Once a day for 30 day(s) Feb, Active PROCEDURES from 1995 to 2021-03-24 Procedure Date Ordered Result Body Site non-stress test 2021-03-06 N/A RESULTS No Results REASON FOR VISIT 1 WK PN/ NST MEDICAL (GENERAL) HISTORY Type Description Date [...] Treatment Notes Treatm ent Clinical Notes Feb, Supervision of normal intrau terine in multigravida in third trimester (ICD-10 - Z34.83) Feb, 29 weeks gestation of (ICD-10 - Z3A.29 ) PLAN OF TREATMENT Next Appt Details 1 Week Reason:COB NST Provider Name:Sue Eng, 2021-03-27 01:00:00 PM, [address] [place] [address] , [place], [address], Provider Name:Royce Polanco 2021-04-03 10:15:00 AM, [address] [place] [address] , [place], [address], Provider Name:Liam Garcia, 11:00:00 AM, [address] [place] [address], , [place], [address], Provider Name:Liam Garcia, 09:40:00 AM, [address] [place] [address], , [place], [address], Provider Name:Sue Eng, 2021-04-24 10:40:00 AM, [address] [place] [address], , [place], [address], Follow Up:1 WeekCOB NST Insurance Providers Payer Name Payer Address Payer Phone Insured Name Patient Relati onship to Insured Coverage Start Date Coverage End Date [address] [phone] HANSA TONEY self
--- OUTSIDE RECORDS SUMMARY | 2021-04-27 17:13 | CCD ---
Author Author [facility] Organization [facility] Address Unknown Phone Unavailable Care Team Providers Care Jukebox Checker Name Role Phone CollinRoyce Unavailable PROBLEMS Type Condition ICD9-CM Code [id number] Code Onset Dates Condition S tatus W/U Status Risk SNOMED Code Notes Problem Obesity, unspecified E66.9 Active confirmed 785498366 Problem Obesity affecting in third trimester O99 .213 Active confirmed 372955041879 Problem Supervision of other normal Z34.80 Ac tive confirm 223875237 Problem Obesity complicating , second trimester O 99.212 Active confirmed [id number] ALLERGIES Allergen (clinical drug ingredient) Drug/Non Drug Allergy do cumented on EMR Reaction Allergy Type Onset Date Status Penicillin Penicillin Hives Non Drug Allergy Active Ibuprofen Ibuprofen Itching Non Drug Allergy Active ENCOUNTERS from 1995 to 2021-02-11 Encounter Location Date Provider Diagnosis [facility] [address] [place] [address] [place] [address] Jan, Royce Polanco IMMUNIZATIONS No Information SOCIAL [...] Information RESULTS No Results REASON FOR VISIT refill MEDICAL (GENERAL) HISTORY Type Description Date Medical [...] Provider Name:Sue Eng, 2021-02-28 08:00:00 AM, [address] [facility], , [place], [address], Insurance Providers Payer Name Payer Address Payer Phone Insured Name Patient Relati onship to Insured Coverage Start Date Coverage End Date [address] [phone] HANSA TONEY self
--- OUTSIDE RECORDS SUMMARY | 2021-04-27 17:14 | CCD ---
Author Author [facility] Organization [facility] Address Unknown Phone Unavailable Care Team Providers Care Business Continuity Analyst Name Role Phone NO, PCP Unavailable Unavailable Lee, M Marce PA-C Unavailable Unavailable Lee, M Marce PA-C Unavailable Unavailable Lee, M Marce PA-C Unavailable Unavailable Lee, M Marce PA-C Unavailable Unavailable Lee, M Marce PA-C Unavailable Unavailable Lee, M Marce PA-C Unavailable Unavailable Lee, M Marce PA-C Unavailable Unavailable Lee, M Marce PA-C Unavailable Unavailable Lee, M Marce PA-C Unavailable Unavailable Lee, M Marce PA-C Unavailable Unavailable Lee, M Marce PA-C Unavailable Unavailable Lee, M Marce PA-C Unavailable Unavailable Lee, M Marce PA-C Unavailable Unavailable Lee, M Marce PA-C Unavailable Unavailable Lee, M Marce PA-C Unavailable Unavailable Lee, M Marce PA-C Unavailable Unavailable Lee, M Marce PA-C Unavailable Unavailable Lee, M Marce PA-C Unavailable Unavailable Lee, M Marce PA-C Unavailable Unavailable Lee, M Marce PA-C Unavailable Unavailable Lee, M Marce PA-C Unavailable Unavailable Lee, M Marce PA-C Unavailable Unavailable Lee, M Marce PA-C Unavailable Unavailable Lee, M Marce PA-C Unavailable Unavailable Lee, M Marce PA-C Unavailable Unavailable Lee, M Marce PA-C Unavailable Unavailable Lee, M Marce PA-C Unavailable Unavailable Lee, M Marce PA-C Unavailable Unavailable Lee, M Marce PA-C Unavailable Unavailable Lee, M Marce PA-C Unavailable Unavailable Lee, M Marce PA-C Unavailable Unavailable Lee, M Marce PA-C Unavailable Unavailable Lee, M Marce PA-C Unavailable Unavailable Lee, M Marce PA-C Unavailable Unavailable Lee, M Marce PA-C Unavailable Unavailable Lee, M Marce PA-C Unavailable Unavailable Lee, M Marce PA-C Unavailable Unavailable Lee, M Marce PA-C Unavailable Unavailable CEFERINO IDALIA Unavailable Unavailable GRAHAM, J BARAK PA Unavailable Unavailable GRAHAM, J BARAK PA Unavailable Unavailable GRAHAM, J BARAK PA Unavailable Unavailable GRAHAM, J BARAK PA Unavailable Unavailable GRAHAM, J BARAK PA Unavailable Unavailable GRAHAM, J BARAK PA Unavailable Unavailable GRAHAM, J BARAK PA Unavailable Unavailable GRAHAM, J BARAK PA Unavailable Unavailable GRAHAM, J BARAK PA Unavailable Unavailable GRAHAM, J BARAK PA Unavailable Unavailable GRAHAM, J BARAK PA Unavailable Unavailable GRAHAM, J BARAK PA Unavailable Unavailable GRAHAM, J BARAK PA Unavailable Unavailable GRAHAM, J BARAK PA Unavailable Unavailable GRAHAM, J BARAK PA Unavailable Unavailable GRAHAM, J BARAK PA Unavailable Unavailable GRAHAM, J BARAK PA Unavailable Unavailable GRAHAM, J BARAK PA Unavailable Unavailable GRAHAM, J BARAK PA Unavailable Unavailable GRAHAM, J BARAK PA Unavailable Unavailable GRAHAM, J BARAK PA Unavailable Unavailable GRAHAM, J BARAK PA Unavailable Unavailable GRAHAM, J BARAK PA Unavailable Unavailable GRAHAM, J BARAK PA Unavailable Unavailable GRAHAM, J BARAK PA Unavailable Unavailable GRAHAM, J BARAK PA Unavailable Unavailable GRAHAM, J BARAK PA Unavailable Unavailable Harshal EVANS JR, MD Unavailable Unavailable Harshal EVANS JR, MD Unavailable Unavailable Harshal EVANS JR, MD Unavailable Unavailable Harshal EVANS JR, MD Unavailable Unavailable Harshal EVANS JR, MD Unavailable Unavailable Harshal EVANS JR, MD Unavailable Unavailable Harshal EVANS JR, MD Unavailable Unavailable Harshal EVANS JR, MD Unavailable Unavailable Harhsal EVANS JR, MD Unavailable Unavailable Harshal EVANS JR, MD Unavailable Unavailable Harshal EVANS JR, MD Unavailable Unavailable Harshal EVANS JR, MD Unavailable Unavailable NOSOVITCH JRHarshal MD Unavailable Unavailable NOSOVITCH JRHarshal MD Unavailable Unavailable NOSOVITCH JRHarshal MD Unavailable Unavailable NOSOVITCH JRHarshal MD Unavailable Unavailable NOSOVITCH JR, Harshal HWANG MD Unavailable Unavailable NOSOVITCH JR, Harshal HWANG MD Unavailable Unavailable NOSOVITCH JR, Harshal HWANG MD Unavailable Unavailable NOSOVITCH JR, Harshal HWANG MD Unavailable Unavailable NOSOVITCH JR, Harshal HWANG MD Unavailable Unavailable NOSOVITCH JRHarshal MD Unavailable Unavailable NOSOVITCH JR, Harshal HWANG MD Unavailable Unavailable NOSOVITCH JR, Harshal HWANG MD Unavailable Unavailable NOSOVITCH JRHarshal MD Unavailable Unavailable NOSOVITCH JRHarshal MD Unavailable Unavailable NOSOVITCH JR, Harshal HWANG MD Unavailable Unavailable NOSOVITCH JRHarshal MD Unavailable Unavailable NOSOVITCH JRHarshal MD Unavailable Unavailable NOSOVITCH JRHarshal MD Unavailable Unavailable NOSOVITCH JRHarshal MD Unavailable Unavailable O'danelle, A Rajiv PA Unavailable Unavailable O'danelle, A Rajiv PA Unavailable Unavailable O'danelle, A Rajiv PA Unavailable Unavailable O'danelle, A Rajiv PA Unavailable Unavailable O'danelle, A Rajiv PA Unavailable Unavailable O'danelle, A Rajiv PA Unavailable Unavailable O'danelle, A Rajiv PA Unavailable Unavailable O'danelle, A Rajiv PA Unavailable Unavailable O'danelle, A Rajiv PA Unavailable Unavailable O'danelle, A Rajiv PA Unavailable Unavailable O'danelle, A Rajiv PA Unavailable Unavailable O'danelle, A Rajiv PA Unavailable Unavailable O'danelle, A Rajiv PA Unavailable Unavailable O'danelle, A Rajiv PA Unavailable Unavailable O'danelle, A Rajiv PA Unavailable Unavailable O'danelle, A Rajiv PA Unavailable Unavailable O'danelle, A Rajiv PA Unavailable Unavailable O'danelle, A Rajiv PA Unavailable Unavailable O'danelle, A Rajiv PA Unavailable Unavailable O'danelle, A Rajiv PA Unavailable Unavailable O'danelle, A Rajiv PA Unavailable Unavailable O'danelle, A Rajiv PA Unavailable Unavailable O'danelle, A Rajiv PA Unavailable Unavailable O'danelle, A Rajiv PA Unavailable Unavailable O'danelle, A Rajiv PA Unavailable Unavailable O'danelle, A Rajiv PA Unavailable Unavailable O'danelle, A Rajiv PA Unavailable Unavailable O'danelle, A Rajiv PA Unavailable Unavailable O'danelle, A Rajiv PA Unavailable Unavailable O'danelle, A Rajiv PA Unavailable Unavailable O'danelle, A Rajiv PA Unavailable Unavailable O'danelle, A Rajiv PA Unavailable Unavailable O'danelle, A Rajiv PA Unavailable Unavailable LAMPACK, JOLEEN Unavailable Unavailable Jan Vargas MD Unavailable Unavailable Jan Vargas MD Unavailable Unavailable Jan Vargas MD Unavailable Unavailable Jan Vargas MD Unavailable Unavailable Jan Vargas MD Unavailable Unavailable Jan Vargas MD Unavailable Unavailable Jan Vargas MD Unavailable Unavailable Jan Vargas MD Unavailable Unavailable Jan Vargas MD Unavailable Unavailable Jan Vargas MD Unavailable Unavailable Jan Vargas MD Unavailable Unavailable Jan Vargas MD Unavailable Unavailable Jan Vargas MD Unavailable Unavailable Jan Vargas MD Unavailable Unavailable Jan Vargas MD Unavailable Unavailable Jan Vargas MD Unavailable Unavailable Jan Vargas MD Unavailable Unavailable Jan Vargas MD Unavailable Unavailable Jan Vargas MD Unavailable Unavailable Jan Vargas MD Unavailable Unavailable Jan Vargas MD Unavailable Unavailable Jan Vargas MD Unavailable Unavailable Jan Vargas MD Unavailable Unavailable Jan Vargas MD Unavailable Unavailable Jan Vargas MD Unavailable Unavailable Jan Vargas MD Unavailable Unavailable GRAHAM, J BARAK PA Unavailable Unavailable GRAHAM, J BARAK PA Unavailable Unavailable GRAHAM, J BARAK PA Unavailable Unavailable GRAHAM, J BARAK PA Unavailable Unavailable GRAHAM, J BARAK PA Unavailable Unavailable GRAHAM, J BARAK PA Unavailable Unavailable GRAHAM, J BARAK PA Unavailable Unavailable GRAHAM, J BARAK PA Unavailable Unavailable GRAHAM, J BARAK PA Unavailable Unavailable GRAHAM, J BARAK PA Unavailable Unavailable GRAHAM, J BARAK PA Unavailable Unavailable GRAHAM, J BARAK PA Unavailable Unavailable GRAHAM, J BARAK PA Unavailable Unavailable GRAHAM, J BARAK PA Unavailable Unavailable GRAHAM, J BARAK PA Unavailable Unavailable GRAHAM, J BARAK PA Unavailable Unavailable GRAHAM, J BARAK PA Unavailable Unavailable GRAHAM, J BARAK PA Unavailable Unavailable GRAHAM, J BARAK PA Unavailable Unavailable GRAHAM, J BARAK PA Unavailable Unavailable GRAHAM, J BARAK PA Unavailable Unavailable GRAHAM, J BARAK PA Unavailable Unavailable GRAHAM, J BARAK PA Unavailable Unavailable GRAHAM, J BARAK PA Unavailable Unavailable GRAHAM, J BARAK PA Unavailable Unavailable GRAHAM, J BARAK PA Unavailable Unavailable GRAHAM, J BARAK PA Unavailable Unavailable Kunnumpurath, F Dayana MD Unavailable Unavailable Kunnumpurath, F Dayana MD Unavailable Unavailable Kunnumpurath, F Dayana MD Unavailable Unavailable Kunnumpurath, F Dayana MD Unavailable Unavailable Kunnumpurath, F Dayana MD Unavailable Unavailable Kunnump[place]ath, F Dayana MD Unavailable Unavailable Kunnumpurath, F Dayana MD Unavailable Unavailable Kunnumpurath, F Dayana MD Unavailable Unavailable Kunnumpurath, F Dayana MD Unavailable Unavailable Kunnumpurath, F Dayana MD Unavailable Unavailable Kunnumpurath, F Dayana MD Unavailable Unavailable Kunnumpurath, F Dayana MD Unavailable Unavailable Kunnumpurath, F Dayana MD Unavailable Unavailable Kunnumpurath, F Dayana MD Unavailable Unavailable Kunnumpurath, F Daynaa MD Unavailable Unavailable Kunnumpurath, F Dayana MD Unavailable Unavailable Kunnumpurath, F Dayana MD Unavailable Unavailable Kunnumpurath, F Dayana MD Unavailable Unavailable Kunnumpurath, F Dayana MD Unavailable Unavailable Kunnumpurath, F Dayana MD Unavailable Unavailable Kunnumpurath, F Dayana MD Unavailable Unavailable Kunnumpurath, F Dayana MD Unavailable Unavailable Kunnumpurath, F Dayana MD Unavailable Unavailable Kunnumpurath, F Dayana MD Unavailable Unavailable Kunnumpurath, F Dayana MD Unavailable Unavailable Kunnumpurath, F Dayana MD Unavailable Unavailable Kunnumpurath, F Dayana MD Unavailable Unavailable Kunnumpurath, F Dayana MD Unavailable Unavailable Kunnumpurath, F Dayana MD Unavailable Unavailable Kunnumpurath, F Dayana MD Unavailable Unavailable Kunnumpurath, F Dayana MD Unavailable Unavailable Kunnumpurath, F Dayana MD Unavailable Unavailable Kunnumpurath, F Dayana MD Unavailable Unavailable Kunnumpurath, F Dayana MD Unavailable Unavailable Kunnumpurath, F Dayana MD Unavailable Unavailable Kunnumpurath, F Dayana MD Unavailable Unavailable Kunnumpurath, F Dayana MD Unavailable Unavailable Kunnumpurath, F Dayana GARG Unavailable Unavailable Kunnumpanil F Dayana GARG Unavailable Unavailable Kunnumpanil F Dayana GARG Unavailable Unavailable Kunnumpanil F Dayana GARG Unavailable Unavailable Kunnumpanil F Dayana GARG Unavailable Unavailable Kunnumpanil F Dayana GARG Unavailable Unavailable Kunnumpanil, F Dayana GARG Unavailable Unavailable Kunnumpanil F Dayana GARG Unavailable Unavailable Kunnumpanil F Dayana AGRG Unavailable Unavailable BARAJAS, R CON DO Unavailable Unavailable BARAJAS, R CON DO Unavailable Unavailable BARAJAS, R CON DO Unavailable Unavailable BARAJAS, R CON DO Unavailable Unavailable BARAJAS, R CON DO Unavailable Unavailable BARAJAS, R CON DO Unavailable Unavailable BARAJAS, R CON DO Unavailable Unavailable BARAJAS, R CON DO Unavailable Unavailable BARAJAS, R CON DO Unavailable Unavailable BARAJAS, R CON DO Unavailable Unavailable BARAJAS, R CON DO Unavailable Unavailable BARAJAS, R CON DO Unavailable Unavailable BARAJAS, R CON DO Unavailable Unavailable BARAJAS, R CON DO Unavailable Unavailable BARAJAS, R CON DO Unavailable Unavailable BARAJAS, R CON DO Unavailable Unavailable BARAJAS, R CON DO Unavailable Unavailable BARAJAS, R CON DO Unavailable Unavailable BARAJAS, R CON DO Unavailable Unavailable BARAJAS, R CON DO Unavailable Unavailable BARAJAS, R CON DO Unavailable Unavailable BARAJAS, R CON DO Unavailable Unavailable BARAJAS, R CON DO Unavailable Unavailable BARAJAS, R CON DO Unavailable Unavailable BARAJAS, R CON DO Unavailable Unavailable BARAJAS, R CON DO Unavailable Unavailable BARAJAS, R CON DO Unavailable Unavailable BARAJAS, R CON DO Unavailable Unavailable BARAJAS, R CON DO Unavailable Unavailable BARAJAS, R CON DO Unavailable Unavailable Fadi F Dayana GARG Unavailable Unavailable Fadi F Dayana GARG Unavailable Unavailable Fadi F Dayana GARG Unavailable Unavailable Fadi F Dayana GARG Unavailable Unavailable Matyndarryn F Dayana GARG Unavailable Unavailable Fadi F Dayana GARG Unavailable Unavailable Fadi F Dayana GARG Unavailable Unavailable Matynumpurath, F Dayana MD Unavailable Unavailable Kunnumpurath, F Dayana MD Unavailable Unavailable Kunnumpurath, F Dayana MD Unavailable Unavailable Kunnumpurath, F Dayana MD Unavailable Unavailable Kunnumpurath, F Dayana MD Unavailable Unavailable Kunnumpurath, F Dayana MD Unavailable Unavailable Kunnumpurath, F Dayana MD Unavailable Unavailable Kunnumpurath, F Dayana MD Unavailable Unavailable Kunnumpurath, F Dayana MD Unavailable Unavailable Kunnumpurath, F Dayana MD Unavailable Unavailable Kunn[place]urath, F Dayana MD Unavailable Unavailable Kunnumpurath, F Dayana MD Unavailable Unavailable Kunnumpurath, F Dayana MD Unavailable Unavailable Kunnumpurath, F Dayana MD Unavailable Unavailable Kunnumpurath, F Dayana MD Unavailable Unavailable Kunnumpurath, F Dayana MD Unavailable Unavailable Kunnumpurath, F Dayana MD Unavailable Unavailable Kunnumpurath, F Dayana MD Unavailable Unavailable Kunnumpurath, F Dayana MD Unavailable Unavailable Kunnumpurath, F Dayana MD Unavailable Unavailable Kunnumpurath, F Dayana MD Unavailable Unavailable Kunnumpurath, F Dayana MD Unavailable Unavailable Kunnumpurath, F Dayana MD Unavailable Unavailable Kunnumpurath, F Dayana MD Unavailable Unavailable Kunnumpurath, F Dayana MD Unavailable Unavailable Kunnumpurath, F Dayana MD Unavailable Unavailable Kunnumpurath, F Dayana MD Unavailable Unavailable Kunn[place]urath, F Dayana MD Unavailable Unavailable Kunnumpurath, F Dayana MD Unavailable Unavailable Kunn[place]ath, F Dayana MD Unavailable Unavailable Kunn[place]urath, F Dayana MD Unavailable Unavailable Kunn[place]urath, F Dayana MD Unavailable Unavailable Kunnumpurath, F Dayana MD Unavailable Unavailable Kunnumpurath, F Dayana MD Unavailable Unavailable Kunnumpurath, F Dayana MD Unavailable Unavailable Kunnumpurath, F Dayana MD Unavailable Unavailable Kunnumpurath, F Dayana MD Unavailable Unavailable Kunnumpurath, F Dayana MD Unavailable Unavailable Kunnumpurath, F Dayana MD Unavailable Unavailable Re-disclosure Warning The records that you are about to access may contain information from federally-assisted alcohol or drug abuse programs. If such information is present, then the following federally mandated warning applies: This information has been disclosed to you from records protected by federal confidentiality rules (42 CFR part 2). The federal rules prohibit you from making any further disclosure of this information unless further disclosure is expressly permitted by the written consent of the person to whom it pertains or as otherwise permitted by 42 CFR part 2. A general authorization for the release of medical or other information is NOT sufficient for this purpose. The Federal rules restrict any use of the information to criminally investigate or prosecute any alcohol or drug abuse patient.The records that you are about to access may contain highly sensitive health information, the redisclosure of which is protected by Article 27-F of the [facility] Public Health law. If you continue you may have access to information: Regarding HIV / AIDS; Provided by facilities licensed or operated by the [facility] Office of Mental Health; or Provided by the [facility] Office for People With Developmental Disabilities. If such information is present, then the following [facility] mandated warning applies: This information has been disclosed to you from confidential records which are protected by state law. State law prohibits you from making any further disclosure of this information without the specific written consent of the person to whom it pertains, or as otherwise permitted by law. Any unauthorized further disclosure in violation of state law may result in a fine or longterm sentence or both. A general authorization for the release of medical or other information is NOT sufficient authorization for further disc losure. Allergies and Adverse Reactions Type Description Substance Reaction Status Data Source(s ) Propensity to adverse reactions PENICILLINS Penicillin [facility] Propensity to adverse reactions IBUPROFEN Ibuprofen Itching [facility] Propensity to adverse reactions PENICILLIN PENICILLIN [facility] Drug allergy IBUPROFEN IBUPROFEN FEELS LIKE SKIN IS ON FIRE.; Itching FEELS LIKE SKIN IS ON FIRE. [facility] Family History Family Member Name Family Member Gender Family Member Status Date o f Status Description Data Source(s) Unknown Male Problem MEDENT ([facility]) Encounters Encounter Providers Location Date Indications Data Source(s ) [place] [address] [facility] [address] 04/24/2021 12:00:00 AM EST eCW1 ([facility]) [place] [address] [facility] [address] 04/24/2021 12:00:00 AM EST eCW1 ([facility]) Unknown [address] [facility] [place] [address] 04/21/2021 12:00:00 AM EST eCW1 ([facility]) (WC ESTOB) [facility] [address] [place] [address] 04/16/2021 12:00:00 AM EST eCW1 ([facility]) (WC ESTOB) [facility] [address] [place] [address] 04/10/2021 12:00:00 AM EST eCW1 ([facility]) (WC ESTOB) [facility] [address] [place] [address] 04/03/2021 12:00:00 AM EST eCW1 ([facility]) (WC COB) [facility] Complicated OB [address] [place] [address] 03/27/2021 12:00:00 AM EDT eCW1 ([facility]) Unknown [address] [facility] [address] 03/14/2021 12:00:00 AM EDT eCW1 ([facility]) (WC ESTOB) [facility] [address] [place] [address] 03/13/2021 12:00:00 AM EDT eCW1 ([facility]) (WC COB) [facility] [address] [place] [address] 03/06/2021 12:00:00 AM EDT eCW1 ([facility]) (WC ESTOB) [facility] Est [facility] [address] [place] [address] 02/28/2021 12:00:00 AM EDT eCW1 ([facility]) Outpatient Attender: JAIDEN EVANS JRReferrer: CON MADISON DO [id number] 02/25/2021 12:00:00 AM EDT - 02/25/2021 12:44:54 PM [facility] Outpatient 02/25/2021 12:00:00 AM [facility] Outpatient Attender: IDALIA DE LA VEGAReferrer: CON Bullard 02/25/2021 12:00:00 AM [facility] [place] [address] [facility] [address] 02/13/2021 12:00:00 AM EDT eCW1 ([facility]) [place] [address] [facility] [address] 02/12/2021 12:00:00 AM EDT eCW1 ([facility]) [place] [address] [facility] [address] 02/10/2021 12:00:00 AM EDT eCW1 ([facility]) ( ESTOB) enter Est OB [address] [place] [address] 02/04/2021 12:00:00 AM EDT eCW1 ([facility]) ( ESTOB) enter Est OB [address] [place] [address] 01/23/2021 12:00:00 AM EDT eCW1 ([facility]) ( ESTOB) enter Est OB [address] [place] [address] 01/09/2021 12:00:00 AM EDT eCW1 ([facility]) [place] [address] [facility] [address] 12/13/2020 12:00:00 AM EDT eCW1 ([facility]) ( ESTOB) enter Est OB [address] [place] [address] 12/02/2020 12:00:00 AM EDT eCW1 ([facility]) [place] [address] [facility] [address] 11/04/2020 12:00:00 AM EDT eCW1 ([facility]) ( NEWOB) [facility] New OB Visit [address] [place] [address] 10/29/2020 12:00:00 AM EDT eCW1 ([facility]) Outpatient Attender: Rajiv SANTIAGO [facility] 10/07/2020 11:00:00 AM EDT [facility] ([facility]) Outpatient Attender: Dayana Aponte MDConsultant: PCP NO 08/20/2020 11:20:00 AM EDT - 08/20/2020 12:20:00 PM EDT [facility] Patient discharged. Outpatient Attender: Dayana Aponte MDConsultant: PCP NO 08/15/2020 08:01:00 AM EDT - 08/15/2020 08:01:00 AM EDT [facility] Outpatient Attender: Dayana Aponte MD Family Practice 0 08/15/2020 08:00:00 AM EDT MED[facility] ([facility] Outpatient Attender: Dayana Aponte MDConsultant: PCP NO 07/18/2020 01:43:00 PM EST - 07/18/2020 01:43:00 PM [facility] Outpatient Attender: Dayana Aponte MD Family Practice 0 07/18/2020 12:40:00 PM EST MEDENT ([facility]) Outpatient Attender: Dayana Aponte MDConsultant: PCP NO 06/18/2020 02:26:00 PM EST - 06/18/2020 02:26:00 PM [facility] Outpatient Attender: Dayana Aponte MDConsultant: PCP NO 06/03/2020 02:24:00 PM EST - 06/03/2020 03:24:00 PM [facility] Outpatient Attender: JOLEEN PORTILLORef errer: Horace Vargas MDConsultant: PCP NO 04/30/2020 03:07:00 PM EST - 04/30/2020 03:07:00 PM [facility] Outpatient Attender: Dayana Aponte MDConsultant: PCP NO 04/26/2020 03:04:00 PM EST - 04/26/2020 03:04:00 PM [facility] Outpatient Attender: Dayana Aponte MD Family Practice 1 06/27/2019 02:00:00 PM EST [facility] ([facility]) Outpatient Attender: Marce ANDRADE ttender: JOLEEN PORTILLOReferrer: JOLEEN PORTILLOConsultant: PCP NO 04/16/2020 11:42:00 AM EST - 04/16/2020 11:42:00 AM EST [facility] Outpatient Attender: JOLEEN PORTILLORef errer: Horace Vargas MDConsultant: PCP NO 04/01/2020 02:07:00 PM EST - 04/01/2020 02:07:00 PM [facility] Outpatient Attender: JOLEEN PORTILLORef errer: Horace Vargas MDConsultant: PCP NO 03/01/2020 03:14:00 PM EDT - 03/01/2020 03:14:00 PM EDT [facility] Outpatient Attender: BARAK GRAHAM PAReferrer: Horace granados MD 03/01/2020 03:02:00 PM EDT - 03/01/2020 03:02:00 PM EDT [facility] Outpatient Attender: BARAK SANTIAGO Family Practice 03/01 03:00:00 PM EDT [facility] Outpatient Attender: JOLEEN PORTILLOReferrer: Horace arevalo MD 02/12/2020 02:05:00 PM EDT - 02/12/2020 02:05:00 PM EDT [facility] Immunizations Vaccine Date Status Description Data Source(s) Tdap 02/28/2021 09:01:00 AM EDT completed e CW1 ([facility]) Tdap 02/28/2021 09:01:00 AM EDT completed e CW1 ([facility]) Tdap 02/28/2021 09:01:00 AM EDT completed e CW1 ([facility]) Tdap 02/28/2021 09:01:00 AM EDT completed e CW1 ([facility]) Tdap 02/28/2021 09:01:00 AM EDT completed e CW1 ([facility]) Tdap 02/28/2021 09:01:00 AM EDT completed e CW1 ([facility]) Tdap 02/28/2021 09:01:00 AM EDT completed e CW1 ([facility]) Tdap 02/28/2021 09:01:00 AM EDT completed e CW1 ([facility]) Tdap 02/28/2021 09:01:00 AM EDT completed e CW1 ([facility]) Tdap 02/28/2021 09:01:00 AM EDT completed e CW1 ([facility]) Tdap 02/28/2021 09:01:00 AM EDT completed e CW1 ([facility]) Medications Medication Brand Name Start Date Product Form Dose Route Admi nistrative Instructions Pharmacy Instructions Status Indications Reaction Description Data Source(s) Omeprazole 20 MG Delayed Release Oral Capsule Omeprazole 20 MG 02/28/2021 12:00:00 AM EDT active Omeprazo le 20 MG eCW1 ([facility]) Omeprazole 20 MG Delayed Release Oral Capsule Omeprazole 20 MG 02/28/2021 12:00:00 AM EDT active Omeprazo le 20 MG eCW1 ([facility]) Omeprazole 20 MG Delayed Release Oral Capsule Omeprazole 20 MG 02/28/2021 12:00:00 AM EDT active Omeprazo le 20 MG eCW1 ([facility]) Omeprazole 20 MG Delayed Release Oral Capsule Omeprazole 20 MG 02/28/2021 12:00:00 AM EDT active Omeprazo le 20 MG eCW1 ([facility]) Omeprazole 20 MG Delayed Release Oral Capsule Omeprazole 20 MG 02/28/2021 12:00:00 AM EDT active Omeprazo le 20 MG eCW1 ([facility]) Omeprazole 20 MG Delayed Release Oral Capsule Omeprazole 20 MG 02/28/2021 12:00:00 AM EDT active Omeprazo le 20 MG eCW1 ([facility]) Omeprazole 20 MG Delayed Release Oral Capsule Omeprazole 20 MG 02/28/2021 12:00:00 AM EDT active Omeprazo le 20 MG eCW1 ([facility]) Omeprazole 20 MG Delayed Release Oral Capsule Omeprazole 20 MG 02/28/2021 12:00:00 AM EDT active Omeprazo le 20 MG eCW1 ([facility]) Omeprazole 20 MG Delayed Release Oral Capsule Omeprazole 20 MG 02/28/2021 12:00:00 AM EDT active Omeprazo le 20 MG eCW1 ([facility]) Omeprazole 20 MG Delayed Release Oral Capsule Omeprazole 20 MG 02/28/2021 12:00:00 AM EDT active Omeprazo le 20 MG eCW1 ([facility]) Omeprazole 20 MG Delayed Release Oral Capsule Omeprazole 20 MG 02/28/2021 12:00:00 AM EDT active Omeprazo le 20 MG eCW1 ([facility]) Aspir-Low 81 MG UNK 12/02/2020 12:00:00 AM EDT 1.0 {tablet} suspended Aspir-Low 81 MG eCW1 ([facility]) Aspir-Low 81 MG UNK 12/02/2020 12:00:00 AM EDT 1.0 {tablet} suspended Aspir-Low 81 MG eCW1 ([facility]) Aspir-Low 81 MG UNK 12/02/2020 12:00:00 AM EDT 1.0 {tablet} suspended Aspir-Low 81 MG eCW1 ([facility]) Aspir-Low 81 MG UNK 12/02/2020 12:00:00 AM EDT 1.0 {tablet} suspended Aspir-Low 81 MG eCW1 ([facility]) Aspir-Low 81 MG UNK 12/02/2020 12:00:00 AM EDT 1.0 {tablet} suspended Aspir-Low 81 MG eCW1 ([facility]) Aspir-Low 81 MG UNK 12/02/2020 12:00:00 AM EDT 1.0 {tablet} suspended Aspir-Low 81 MG eCW1 ([facility]) Aspir-Low 81 MG UNK 12/02/2020 12:00:00 AM EDT 1.0 {tablet} suspended Aspir-Low 81 MG eCW1 ([facility]) Aspir-Low 81 MG UNK 12/02/2020 12:00:00 AM EDT 1.0 {tablet} suspended Aspir-Low 81 MG eCW1 ([facility]) Aspir-Low 81 MG UNK 12/02/2020 12:00:00 AM EDT 1.0 {tablet} suspended Aspir-Low 81 MG eCW1 ([facility]) Aspir-Low 81 MG UNK 12/02/2020 12:00:00 AM EDT 1.0 {tablet} active Aspir-Low 81 MG eCW1 ([facility]) Aspir-Low 81 MG UNK 12/02/2020 12:00:00 AM EDT 1.0 {tablet} active Aspir-Low 81 MG eCW1 ([facility]) Aspir-Low 81 MG UNK 12/02/2020 12:00:00 AM EDT 1.0 {tablet} suspended Aspir-Low 81 MG eCW1 ([facility]) Aspir-Low 81 MG UNK 12/02/2020 12:00:00 AM EDT 1.0 {tablet} suspended Aspir-Low 81 MG eCW1 ([facility]) Aspir-Low 81 MG UNK 12/02/2020 12:00:00 AM EDT 1.0 {tablet} suspended Aspir-Low 81 MG eCW1 ([facility]) Aspir-Low 81 MG UNK 12/02/2020 12:00:00 AM EDT 1.0 {tablet} suspended Aspir-Low 81 MG eCW1 ([facility]) Aspir-Low 81 MG UNK 12/02/2020 12:00:00 AM EDT 1.0 {tablet} suspended Aspir-Low 81 MG eCW1 ([facility]) Aspir-Low 81 MG UNK 12/02/2020 12:00:00 AM EDT 1.0 {tablet} suspended Aspir-Low 81 MG eCW1 ([facility]) Magnesium Glycinate 08/15/2020 12:00:00 AM EDT ORAL active [facility] Riboflavin 08/15/2020 12:00:00 AM EDT ORAL active [facility] Phentermine Hydrochloride 30 MG Oral Capsule Phentermine HCL 04/26/2020 12:00:00 AM EST ORAL completed [facility]) Fluconazole 150 MG Oral Tablet Fluconazole 01/26/2020 12:00:00 AM EDT ORAL completed [facility] ([facility]) Prednisone 10 MG Oral Tablet Prednisone 01/09/2020 12:00:00 AM EDT ORAL completed [facility] Azithromycin 250 MG Oral Tablet Azithromycin 01/09/2020 12:00:00 AM EDT completed [facility] ([facility]) cetirizine hydrochloride 10 MG Oral Tablet Cetirizine HCL 01/09/2020 12:00:00 AM EDT ORAL completed [facility]) Insurance Providers Payer name Policy type / Coverage type Policy ID Covered alliance party ID Covered alliance party's relationship to nash Policy Nash Plan Information [facility] U [id number] Se lf [id number] [facility] [place] [id number] 18 [id number] [facility] [place] [id number] [id number] [facility] [place] [id number] [facility] [place] [id number] [id number] [address] [facility] [place] [id number] [id number] [facility] O [id number] S [id number] [facility] [place] [id number] 18 [id number] [facility] [id number] Self [id number] [facility] [id number] SP [id number] [facility] [employer] [id number] Self [id number] Problems, Conditions, and Diagnoses Code Display Name Description Problem Type Effective Dates Data Source(s) R55 Syncope and collapse Syncope and collapse Diagnosis 08/20/2020 11:20:00 AM EDT [facility] E669 Obesity, unspecified Obesity, unspecified Diagnosis 08/15/2020 08:01:00 AM EDT [facility] F419 Anxiety disorder, unspecified Anxiety disorder, unspec ified Diagnosis 08/15/2020 08:01:00 AM EDT [facility] Z9181 History of falling History of falling Diagnosis 02:26:00 PM [facility] Z6842 Body mass index [BMI] 45.0-49.9, adult B ysabel mass index [BMI] 45.0-49.9, adult Diagnosis 06/18/2020 02:26:00 PM [facility] R2241 Localized swelling, mass and lump, right lower limb Localized swelling, mass and lump, right lower limb Diagnosis 06/03/2020 02:24:00 PM [facility] F3289 Other specified depressive episodes Other specif ied depressive episodes Diagnosis 04/30/2020 03:07:00 PM [facility] 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 F339 Major depressive disorder, recurrent, un specified Major depressive disorder, recurrent, unspecified Diagnosis 04/01/2020 02:07:00 PM [facility] O99.213 [id number] Obesity affecting in third trim jean carlso Problem 01/23/2021 12:00:00 AM EDT eCW1 ([facility]) E66.9 Obesity Obesity, unspecified Problem 01/13/2021 12:0 0:00 AM EDT eCW1 ([facility]) O99.212 [id number] Obesity complicating , second tr imester Problem 12/02/2020 12:00:00 AM EDT eCW1 ([facility]) Z34.80 care Supervision of other normal P analisa 10/22/2020 12:00:00 AM EDT eCW1 ([facility]) N97.9 Female infertility Female infertility Problem 12:00:00 AM EDT [facility] ([facility]) G43.009 Migraine without aura, not refractory Mi graine without aura, not refractory Problem 10/07/2020 12:00:00 AM EDT [facility] ([facility]) E28.2 Polycystic ovary syndrome Polycystic ovary syndrome Pr oblem 10/07/2020 12:00:00 AM EDT [facility] ([facility]) [id number] Anxiety state Anxiety state Problem 08/15/2020 12:00:00 AM EDT [facility] Surgeries/Procedures Procedure Description Date Indications Data Source(s) NONSTRESS TEST 04/03/2021 12:00:00 AM EST eCW1 ([facility]) NONSTRESS TEST 03/13/2021 12:00:00 AM EDT eCW1 ([facility]) NONSTRESS TEST 03/06/2021 12:00:00 AM EDT eCW1 ([facility]) TDAP VACCINE 7/> YR IM 02/28/2021 12:00:00 AM EDT eCW1 ([facility]) NONSTRESS TEST 02/28/2021 12:00:00 AM EDT eCW1 ([facility]) OFFICE OUTPATIENT NEW 30 MINUTES 10/07/2020 12:00:00 A M EDT [facility] ([facility]) Results ID Date Data Source [id number] 04/23/2021 11:45:00 AM EST [facility] Name Value Range Interpretation Code Description Data Flor rce(s) Supporting Document(s) SARS-CoV-2 (COVID-19) RNA [Presence] in Respiratory specimen by [facility] with probe detection Not Detected [facility] This lab was ordered by Health system and reported by [employer] ID Date Data Source [id number] 04/04/2021 11:04:00 AM EST [facility] ([facility]) Name Value Range Interpretation Code Description Data Flor rce(s) Supporting Document(s) Urine Culture Laboratory test result Normal (applies t o non-numeric results) [facility] ([facility]) FULL REPORT IN LAB NOTES (eCW and [facility] ). NO GROWTH CLINICAL SIGNIFICANCE 1 ORGANISM ID Date Data Source URINE CULTURE 04/04/2021 12:00:00 AM EST eCW1 ([facility]) Name Value Range Interpretation Code Description Data Flor rce(s) Supporting Document(s) URINE CULTURE eCW1 ([facility]) ID Date Data Source WWBC BPP W/O NON STRESS TEST 03/07/2021 12:00:00 AM ED T eCW1 ([facility]) Name Value Range Interpretation Code Description Data Flor rce(s) Supporting Document(s) WWBC BPP W/O NON ST RESS TEST eCW1 ([facility]) ID Date Data Source [id number] 02/26/2021 04:27:22 PM EDT [facility] Name Value Range Interpretation Code Description Data Flor rce(s) Supporting Document(s) Progress Note [facility] LRVTLo5fOaRRXcPt10/YMLvuUXHbo5LtCMtpRYv7VTmoRUBvK8XzTIX1lO6qNKK9GVsGLySkVsRqOSC3 lbm [file] AgICAgICAgICAgICAgICAgICAgICAgICAgICAgICAg ICAgICAgICAgICAgICAgICAgICAgICAgICAgICAgICAgICAgICAgICAgDQogICAgICAgICAgICAgICAg ICAgICAgICAgICAgICAgICAgICAgICAgICAgICAgICAgICAgICAgICAgICAgICAgICAgICAgICAgICAg ICAgICAgICAgICAgICAgICAgICAgICAgDQogICAgIC AgICAgICAgICAgICAgICAgICAgICAgICAgICAgICAgICAgICAgICAgICAgICAgICAgICAgICAgICAgIC AgICAgICAgICAgICAgICAgICAgICAgICAgICAgICAgICAgDQogICAgICAgICAgICAgICAgICAgICAgIC AgICAgICAgICAgICAgICAgICAgICAgICAgICAgICAg ICAgICAgICAgICAgICAgICAgICAgICAgICAgICAgICAgICAgICAgICAgICAgDQogICAgICAgICAgICAg ICAgICAgICAgICAgICAgICAgICAgICAgICAgICAgICAgICAgICAgICAgICAgICAgICAgICAgICAgICAg ICAgICAgICAgICAgICAgICAgICAgICAgICAgDQogIC AgICAgICAgICAgICAgICAgICAgICAgICAgICAgICAgICAgICAgICAgICAgICAgICAgICAgICAgICAgIC AgICAgICAgICAgICAgICAgICAgICAgICAgICAgICAgICAgICAgDQogICAgICAgICAgICAgICAgICAgIC AgICAgICAgICAgICAgICAgICAgICAgICAgICAgICAg ICAgICAgICAgICAgICAgICAgICAgICAgICAgICAgICAgICAgICAgICAgICAgICAgDQogICAgICAgICAg ICAgICAgICAgICAgICAgICAgICAgICAgICAgICAgICAgICAgICAgICAgICAgICAgICAgICAgICAgICAg ICAgICAgICAgICAgICAgICAgICAgICAgICAgICAgDQ ogICAgICAgICAgICAgICAgICAgICAgICAgICAgICAgICAgICAgICAgICAgICAgICAgICAgICAgICAgIC AgICAgICAgICAgICAgICAgICAgICAgICAgICAgICAgICAgICAgICAgDQogICAgICAgICAgICAgICAgIC AgICAgICAgICAgICAgICAgICAgICAgICAgICAgICAg NUWoVPPkYMNfUYGrNNExYKAtZJFmOILuYFVsREPlDXEbWFLjPUWoKWTuHFMtIQCrDGZfHEs0R2fmNMHm ILNvQQ8sVJe0Zh8+PWtFEnZaRPH7inQdkF7TYW7dg6EuDGkbQIPau3LbXKr6QL0FIMYoTSouQL8PKKpw ka6OZKZtBPYtnNYNr5smEhCgIPW9NNVfRsexZI6BPU ZlG9eemxDlQAFwOVXZOQfpUGTXZIzmSERSEA4TZkGnT0OezE89MRAHEs3+YPakgpJkPpiMFjA7EBFwh6 QbWHe5BV2JNJWbQoiyv0ElHeUwXUUAUPasBJ9PUMR0LKWxGZHtAn2EZMGuB240hhIpEM7RYl1AGyReBC 5jhb2RPzAoTYTlTzfDQuf8VUlkMG2SeFFlXHrFvr5r xeKcdvDSr5SazeHgwZYNt6ylBFFtJp2gj2ZzgHLeTFBYEWVhgQGjKI57XpIzSnTvUOM0MvEdIO5qQHjd RM5HVMH6WRyvONJnFZXyH3kVHqVuCIAoCeGaeJtlDJ9TWoAiM8BejiQtdLSzGEMgNEZHSm3+DQplbmRv BgsLGtLdKKYke6VbOHx6EV0DUNUnZSvyGW5PAKGroQ 4hIPahHN9YHiGoLmYiWDSWGyCvO57mwHHhNEf0G7RvSwLhEFOwHjfqOMPoAIviMwYhPLUpMrNcFPmrEE 4+ID4+MYlrKZ0VNHnxndRqTIIrIz5HHCCnFKDiOZ3wMLVzJEQxJ2O8nIyzQDSBNtOsK4cxdittQF3mNR CnU303aNnciwBzZAD6JYRlBl4YJMLxDCA3USEvqNLh WspdVXCHLQloDQ0DoRDfJDZ2iN6lYVlvYVUkMEAqV5aKPzTxsQpdYW56uItnusIlvBTjQUo+Zc9YBT9a r1CrETc5maKdEMqkWINrGAgkWOLnHAEfFWNdWHD5HKU4QHIXAkEaPMXcVFRlHVvwLBDpIMGzpg6HYUYk UXS4ULE7UnUaCRQgHQDzLTalSOPsQIM7MUV2BOWoUD YdAH3IDpTiGNWkPZQpLHtjDEQqCHUyez5HOYKxZYDmAvKdXxDiQHSmCUWsIUszHPKxKQIpEbE3LVOaSC XjJA5MHrLjXQYlHOckVZFdNOXeWBCgnk7OCPGzWVRlTaJ8ODHiXTMyHVWmOYnxOBFqBLO8IUdkZDMzBN YwJG4UDxFxXPSrEAMdEVIzODAfJNVtwn5QIUPyATTk WTB1HKZrFHCuDDUyQXfkRZUiXXAiHrVkRLUcCOMbRA9PRmVcHMClQWY5JiKnCRTzSLCtzi6ATNXqJFKw EdU0ADPuSDTtIODvONtoCLHpMMWiGjg9HYOaZVFtWZ7FWhTyHSCxLIB9EeFcPYTdDVZmlp1VIELeADAr ZEcbZRDnXNPjJWOtMFlaFIVpFZIvGtc8AAMxXIZxRC 4FEyEbCUAdDRY9FKYaQEQdQPNwmk5KJBMnVGW0OGItBtXvZVPbRPOmSDhmGISxWKHeXHQ8IXMiEXVjUL 0KPeMhETShOLA8GXJdXOLdNVEjpb6PSOPbUTX7FlD4AMUzOAQrNHZqFUdyMMZpIBKdMtO5NCGlDIHlHJ 1ZVsWlUFPoGPO9GIufFRLxZVJdxv7GRCDdNQG3Bgh1 WwJpUKCkHIMkWOszFAKtOIV2MEw0ILBjCLEgYO0LKtYdHQWiXBD5BHzoKZEdSXSbzp6XZTTcKQT4JWh2 NXDdJYKzXIRvYKnbNOLbOVT2ZBV2AQHtJRTiOU4TDcVhAMQhEDNnPKLgYGJpRKNpfo8JrJDzqXczmi3S OFbKFu9IxTmwSMAyCPmtOz8rkQXdNMPdMJFQAk0Poc JmKMSvYJDNSCobVFJqMRNjHNWnVBFaKZNxPTJuAdIzT4ChNTDlVFRdEvgoIJyaIkK9ZLWjYXC2HUW9Dt VpPUQzKxR7F5UaU0GlWrDjOETyZMG+US2iIDr+Nd0Mc7UwofQ1nhCxXZh8NrEnVC9EAATTT8EYFr== ID Date Data Source [id number] 12/02/2020 09:47:00 AM EDT [facility] ([facility]) Name Value Range Interpretation Code Description Data Flor rce(s) Supporting Document(s) Bacteria identified in Urine by Culture Laboratory test result Normal (applies to non-numeric results) [facility] ([facility]) FULL REPORT IN LAB NOTES (eCW and [facility] ). NO GROWTH CLINICAL SIGNIFICANCE 2 OR MORE ORGANISMS ID Date Data Source [id number] 12/02/2020 09:47:00 AM EDT [facility]) Name Value Range Interpretation Code Description Data Flor rce(s) Supporting Document(s) Chlamydia Dna Amplification Laboratory test result Normal (applies to non- numeric results) [facility] ([facility]) A negative test result does not exclude the possibility of infection because test results may be affected by improper specimen collection, technical error, specimen mix-up, concurrent antibiotic therapy, or the number of organisms in the specimen which may be below the sensitivity of the test. GC Dna Amplification Laboratory test result Norm al (applies to non-numeric results) [facility] ([facility]) A negative test result does not exclude the possibility of infection because test results may be affected by improper specimen collection, technical error, specimen mix-up, concurrent antibiotic therapy, or the number of organisms in the specimen which may be below the sensitivity of the test. ID Date Data Source [id number] 12/02/2020 09:47:00 AM EDT [facility]) Name Value Range Interpretation Code Description Data Flor rce(s) Supporting Document(s) Hepatitis B virus surface Ag [Presence] in Serum or Pl asma by Immunoassay Laboratory test result Normal (applies to non-numeric results) [facility] ([facility]) Hepatitis C virus Ab [Units/volume] in Serum by Immunoassay 0.0 INDEX Normal (applies to non-numeric results) [facility] ([facility]) Negative Not infected with HCV, unless recent infection is suspected or other evidence exists to indicate HCV infection. Rubella virus IgG Ab [Units/volume] in Serum or Plasma by Immunoassay Laboratory test result Normal (applies to non-numeric results) [facility] ([facility]) THE RUBELLA RESULT WAS OBTAINED WITH THE CENTAUR RUBELLA IGG ASSAY. IgG VALUES FROM ANOTHER MANUFACTURERS' METHOD MAY NOT BE USED INTERCHANGEABLY. MAGNITUDE OF LEVEL CANNOT BE CORRELATED TO AN ENDPOINT TITER. SUSCEPTIBLE 0.00-5.00 IU/ML EQUIVOCAL 5.01-9.99 IU/ML IMMUNE > 10.00 IU/ML Reagin Ab [Presence] in Serum by RPR Laboratory test result Normal (applies to non-numeric results) [facility] ([facility]) HIV 1+2 Ab [Presence] in Serum Laboratory test result Normal (applies to non- numeric results) [facility] ([facility]) <content>This assay was performed utiliz ing a chemiluminescent</content>
<content>principle technique for the simultaneous qualitative</content>
<content>detection of HIV-1 p24 antigen & antibodies to HIV-1</content>
<content>(including group O) & HIV-2 using the Siemens Centaur XP</content>
<content>system.</content>
<content>The estimated 95% confidence interval for sensitivity of</content>
<content>this antigen/antibody combination assay for HIV-1&2</content>
<content>antibodies is 99.7-100% and HIV p24 antigen is 89.4-99.9%.</content>
<content>The estimated 95% confidence interval for specificity of</content>
<content>this antigen/antibody combination in low risk populations is</content>
<content>99.6-99.8%.</content>
<content></content> ID Date Data Source [id number] 12/02/2020 09:47:00 AM EDT [facility] ([facility]) Name Value Range Interpretation Code Description Data Flor rce(s) Supporting Document(s) Blood Type Laboratory test result Normal (applies to non-n umeric results) [facility] ([facility]) AB Screen PNP1 Gel (Vis) Laboratory test result Normal (applies to non- numeric results) [facility] ([facility]) ID Date Data Source [id number] 12/02/2020 09:47:00 AM EDT [facility] ([facility]) Name Value Range Interpretation Code Description Data Flor rce(s) Supporting Document(s) White Blood Count 6.8 10 4.0-10.0 Normal (applies to non-numeri c results) [facility] ([facility]) Red Blood Count 3.96 10 4.00-5.40 Below low normal [facility] ([facility]) Hematocrit 36.7 % 36.0-47.0 Normal (applies to non-numeric resul ts) [facility] ([facility]) Hemoglobin 11.9 g/dL 12.0-15.5 Below low normal [facility] ( [facility]) Mean Corpuscular Hemoglobin 30.1 pg 27.0-33.0 Norm al (applies to non-numeric results) [facility] ([facility]) Mean Corpuscular Volume 92.7 fl 80.0-96.0 Normal ( applies to non-numeric results) [facility] ([facility]) Mean Corpuscular HGB Conc 32.4 g/dL 32.0-36.5 Normal (applies to non-numeric results) [facility] ([facility]) Platelet Count, Automated 222 10 150-450 Normal (applies to non-numeric results) [facility] ([facility]) Red Cell Distribution Width 12.3 % 11.5-14.5 Norm al (applies to non-numeric results) [facility] ([facility]) Nucleated Red Blood Cell % 0.0 % 0-0 Normal (applies to n on-numeric results) [facility] ([facility]) ID Date Data Source [id number] 08/22/2020 09:01:00 AM EDT [facility] [address] [place] [address] PHONE: [phone] FAX: [phone] Name .................. : DAWNA [place] Acct Number.................. : [id number] ROOM. ................. : MR Number ................... : [id number] Stay type ............. : O/P Discharge Date......... ... : 08/20/20 Admit Date ......... : 08/20/20 Admit Phys .................... : UMU Date of ....... : 1995 Family Phys ................... : NO PCP Phone .................. : [phone] Age ................................ : 25 Film# .................. .:[id number] Sex ................................. : F Unsigned transcriptions are preliminary reports and do not represent a medical or legal document CT HEAD W/O CONTRAST [id number] COMPLETE:08/20/20 12:03 MITUL 7440 Reason for Exam: SYNCOPE AND COLLAPSE CT SCAN OF THE HEAD WITHOUT CONTRAST: INDICATION: Syncope and collapse. COMPARISON: No prior examination available for comparison. FINDINGS: No intra-axial or extra- axial collections of fluid. Ventricles and sulci unremarkable. No midline shift or mass effect. Visualized paranasal sinuses and mastoid air cells unremarkable. IMPRESSION: No acute intracranial process. While performing the above CT examination, radiation dose reduction was accomplished utilizing automated exposure control, adjusting of the mA and kV based on the patient's body size and/or the use of imperative reconstructive techniques. CT dose: 777.9 mGycm Examination dictated by JACK Dey. Examination was reviewed with Crow Leary MD, radiologist at the time of this dictation. Electronically Reviewed and Signed By Crow Leary MD , 08/22/20 09:01, [facility] Transcribe Initials: DZ , Transcribe Date: 08/21/20 01:25, Dictation Date: Page 1 of [address] [place] [address] PHONE: [phone] FAX: [phone] Name .................. : TONEY HANSA [place] Acct Number.................. : [id number] ROOM. ................. : Number ................... : [id number] Stay type ............. : O/P Discharge Date......... ... : 08/20/20 Admit Date ......... : 08/20/20 Admit Phys .................... : UMU Date of ....... : 1995 Family Phys ................... : NO PCP Phone .................. : [phone] Age ................................ : 25 Film# .................. .:[id number] Sex ................................. : F Unsigned transcriptions are preliminary reports and do not represent a medical or legal document CT HEAD W/O CONTRAST [id number] COMPLETE:08/20/20 12:03 MITUL 7440 Reason for Exam: SYNCOPE AND COLLAPSE Copy for: 710 MED REC Page 2 of 2 Name Value Range Interpretation Code Description Data Flor rce(s) Supporting Document(s) ID Date Data Source [id number] 08/15/2020 11:04:00 AM EDT [facility] ([facility]) Name Value Range Interpretation Code Description Data Flor rce(s) Supporting Document(s) CT Head W/O Contrast Laboratory test result [facility]) ID Date Data Source [id number] 08/15/2020 08:30:00 AM EDT [facility] ([facility]) Name Value Range Interpretation Code Description Data Flor rce(s) Supporting Document(s) Thyrotropin [Units/volume] in Serum or Plasma 1.61 uIU/mL 0.47-5.01 [facility] ([facility]) Is patient fasting? N ID Date Data Source [id number] 08/15/2020 08:30:00 AM EDT [facility] ([facility]) Name Value Range Interpretation Code Description Data Flor rce(s) Supporting Document(s) Comprehensive [employer] Laboratory test result [facility] ([facility]) Is patient fasting? N Potassium 4.4 meq/L 3.6-5.0 [facility] ([facility]) Is patient fasting? N Sodium 139 meq/L 134-153 [facility] ([facility]) Is patient fasting? N Chloride 101 meq/L 98-107 [facility] ([facility]) Is patient fasting? N Co2 27 meq/L 22-30 [facility] ([facility]) Is patient fasting? N BUN 17 mg/dL 7-21 [facility] ([facility]) Is patient fasting? N Creatinine 0.7 mg/dL 0.7-1.5 [facility] ([facility]) Is patient fasting? N Glucose 85 mg/dL 70-99 [facility] ([facility]) Is patient fasting? N Total Protein 7.2 g/dL 6.3-8.2 [facility] Is patient fasting? N Albumin 4.4 g/dL 3.9-5.0 [facility] ([facility]) Is patient fasting? N BUN/Creat 24 8-27 [facility] ([facility]) Is patient fasting? N Globulin 2.8 GM/DL 2.4-3.2 [facility] ([facility]) Is patient fasting? N A/G Ratio 1.6 0.8-2.0 [facility] Is patient fasting? N Total Bili Laboratory test result 0.2-1.3 [facility] ([facility]) Is patient fasting? N Calcium 10.1 mg/dL 8.4-10.2 [facility] ([facility]) Is patient fasting? N Alkaline Phos 74 U/L 38-126 [facility] ([facility]) Is patient fasting? N SGPT/Alt 18 U/L 7-56 [facility] ([facility]) Is patient fasting? N Sgot/Ast 16 U/L 5-40 [facility] ([facility]) Is patient fasting? N Age 25 yrs [facility] ([facility]) Is patient fasting? N Anion Gap 11.0 mmol/L 8.0-16.0 [facility] ([facility]) Is patient fasting? N Non-Aa GFR Laboratory test result [facility]) Is patient fasting? N Afr Amer GFR Laboratory test result [facility] ([facility]) Is patient fasting? N ID Date Data Source [id number] 08/15/2020 08:30:00 AM EDT [facility] ([facility]) Name Value Range Interpretation Code Description Data Flor rce(s) Supporting Document(s) CBC No Diff Laboratory test result M [facility] ([facility]) Is patient fasting? N RBC 4.36 10^6/uL 4.20-5.40 [facility] ([facility]) Is patient fasting? N WBC 7.8 10^3/uL 4.2-11.0 [facility] ([facility]) Is patient fasting? N Hemoglobin 13.2 g/dL 12.0-16.0 [facility] ([facility]) Is patient fasting? N MCV 92.4 fL 81.0-101 [facility] ([facility]) Is patient fasting? N MCH 30.3 pg 27.0-34.0 [facility] ([facility]) Is patient fasting? N Hematocrit 40.3 % 37.0-47.0 [facility] ([facility]) Is patient fasting? N MCHC 32.8 g/dL 31.0-36.0 [facility] ([facility]) Is patient fasting? N RDW 12.0 % 11.5-14.5 [facility] ([facility]) Is patient fasting? N MPV 11.2 fL 7.4-10.4 Above high normal [facility] ([facility]) Is patient fasting? N Platelets 303 10^3/uL 150-450 [facility] ([facility]) Is patient fasting? N ID Date Data Source [id number] 08/15/2020 02:02:00 PM EDT [facility] Name Value Range Interpretation Code Description Data Flor rce(s) Supporting Document(s) Thyrotropin [Units/volume] in Serum or Plasma by Detec tion limit <= 0.05 mIU/L 1.61 uIU/mL 0.47 - 5.01 [facility] ID Date Data Source [id number] 08/15/2020 01:50:00 PM EDT [facility] Name Value Range Interpretation Code Description Data Flor rce(s) Supporting Document(s) COMPREHENSIVE METABOLIC PANEL [facility] COMPREHENSIVE METABOLIC PANEL Sodium [Moles/volume] in Serum or Plasma 139 mEq/L 134 - 153 [facility] Potassium [Moles/volume] in Serum or Plasma 4.4 mEq/L 3.6 - 5.0 [facility] Chloride [Moles/volume] in Serum or Plasma 101 mEq/L 98 - 107 [facility] Carbon dioxide, total [Moles/volume] in Serum or Plasma 27 MEQ/L 22 - 30 [facility] Glucose [Mass/volume] in Serum or Plasma 85 MG/DL 70 - 99 [facility] BUN 17 MG[facility]DL 7 - [facility] Creat[facility] [Mass/volume] in Serum or Plasma 0.7 MG/DL 0.7 - 1.5 [facility] BUN/CREAT 24 8 - 27 [facility] Protein [Mass/volume] in Serum or Plasma 7.2 G/DL 6.3 - 8.2 [facility] Albumin [Mass/volume] in Serum or Plasma 4.4 G/DL 3.9 - 5.0 [facility] Globulin [Mass/volume] in Serum by calculation 2.8 GM/DL 2.4 - 3.2 [facility] A/G RATIO 1.6 0.8 - 2.0 [facility] Calcium [Mass/volume] in Serum or Plasma 10.1 MG/DL 8.4 - 10.2 [facility] Bilirubin.total [Mass/volume] in Serum or Plasma <0.7 MG/DL 0.2 - 1.3 [facility] Alkaline phosphatase [Enzymatic activity/volume] in Serum or Plasma 74 U/L 38 - 126 [facility] Aspartate aminotransferase [Enzymatic activity/volume] in Serum or Plasma 16 U/L 5 - 40 [facility] Alanine aminotransferase [Enzymatic activity/volume] in Seru m or Plasma 18 U/L 7 - 56 [facility] Anion gap 3 in Serum or Plasma 11.0 mmol/L 8.0 - 16.0 [facility] AGE 25 yrs [facility] al NON-AA GFR >60 mL/min [facility] ital AFR AMER GFR >60 mL/min [facility] Ho spital Male GFR In terprentation 20-49 yrs >60 mL/min Normal 50-59 yrs >56 mL/min Normal 60-69 yrs >49 mL/min Normal 70-79yrs >42 mL/min Normal 80 and above >35 mL/min Normal Female GFR Interpretation 20-39 yrs >60 mL/min Normal 40-49 yrs >58 mL/min Normal 50-59 yrs >51 mL/min Normal 60-69 yrs >45 mL/min Normal 70-79 yrs >39 mL/min Normal 80 and above >32 mL/min Normal ID Date Data Source [id number] 08/15/2020 01:38:00 PM EDT [facility] Name Value Range Interpretation Code Description Data Flor rce(s) Supporting Document(s) CBC NO DIFF [facility] Hosp ital COMPLETE BLOOD COUNT Leukocytes [#/volume] in Blood by Automated count 7.8 10^3/uL 4.2 - 1 1.0 [facility] Erythrocytes [#/volume] in Blood by Automated count 4.36 10^6/uL 4. 20 - 5.40 [facility] Hemoglobin [Mass/volume] in Blood 13.2 g/dL 12.0 - 16.0 [facility] Hematocrit [Volume Fraction] of Blood by Automated count 40.3 % 3 7.0 - 47.0 [facility] Erythrocyte mean corpuscular volume [Entitic volume] by Auto mated count 92.4 fL 81.0 - 101 [facility] Erythrocyte mean corpuscular hemoglobin [Entitic mass] by Automated count 30.3 pg 27.0 - 34.0 [facility] Erythrocyte mean corpuscular hemoglobin concentration [Mass/volume] by Automated count 32.8 g/dL 31.0 - 36.0 [facility] Erythrocyte distribution width [Ratio] by Automated count 12.0 % 11.5 - 14.5 [facility] Platelets [#/volume] in Blood by Automated count 303 10^3/uL 150 - 45 0 [facility] Platelet mean volume [Entitic volume] in Blood by Automated count 11.2 fL 7.4 - 10.4 H [facility] ID Date Data Source [id number] 06/04/2020 09:11:00 AM EST [facility] [address] [place] [address] PHONE: [phone] FAX: [phone] Name .................. : DAWNA [place] Acct Number.................. : [id number] ROOM. ................. : Number ................... : [id number] Stay type ............. : O/P Discharge Date......... ... : 06/03/20 Admit Date .... ..... : 06/03/20 Admit Phys .................... : MATYZAID Date of ....... : 1995 Family Phys ................... : NO PCP Phone .................. : [phone] Age ................................ : 25 Film# .................. .:[id number] Sex ................................. : F Unsigned transcriptions are preliminary reports and do not represent a medical or legal document ANKLE AP & LATERAL RT [id number] COMPLETE:06/03/20 18:25 [facility] 1970 (REASON FOR PROCESS: PAIN RIGHT ANKLE: 2- VIEWS FINDINGS: AP and lateral radiographs of the right ankle does not demonstrate an acute fracture within the limits of a 2-view series. There is moderate diffuse soft tissue swelling. Consider MRI for further evaluation if clinically warranted. IMPRESSION: Soft tissue swelling without acute fracture noted on this 2-view series. Consider further evaluation with MRI if clinically warranted. Electronically Reviewed and Signed By Gage Toribio MD , 06/04/20 09:11, AML Transcribe Initials: MELISSA , Transcribe Date: 06/04/20 01:54, Dictation Date: Copy for: 710 MED REC Page 1 of 1 Name Value Range Interpretation Code Description Data Flor rce(s) Supporting Document(s) ID Date Data Source [id number] 04/16/2020 11:34:00 AM EST [facility] ([facility]) Name Value Range Interpretation Code Description Data Flor rce(s) Supporting Document(s) Choriogonadotropin.beta subunit [Moles/volume] in Seru m or Plasma Laboratory test result [facility] ([facility]) .~.~Z32.00 ID Date Data Source [id number] 04/16/2020 08:56:00 PM EST [facility] Name Value Range Interpretation Code Description Data Flor rce(s) Supporting Document(s) Choriogonadotropin.intact [Units/volume] in Serum or Plasma <0.5 mIU/ mL [facility] Interpr etation: Less than 5 mU/mL: Negative 6-10 mU/mL: Borderline (suggest repeat in 48 hours) >10: Positive Approx HCG range (mU/mL) Weeks post LMP 5.4-708 mU/mL 3-4 Weeks [id number] mU/mL 5-6 Weeks 4059-681833 mU/mL 7-8 Weeks 57678-354617 mU/mL 9-10 Weeks 98537-66001 mU/mL 12-14 Weeks 26407-76768 mU/mL 15-16 Weeks 8240- 88150 mU/mL 17-18 Weeks Procedure Social History Code Duration Value Status Description Data Source(s ) Smoking 04/24/2021 12:00:00 AM EST Former Smoker completed Former Smoker eCW1 ([facility]) Smoking 04/24/2021 12:00:00 AM EST Former Smoker completed Former Smoker eCW1 ([facility]) Smoking 04/15/2021 12:00:00 AM EST Former Smoker completed Former Smoker eCW1 ([facility]) Smoking 04/15/2021 12:00:00 AM EST Former Smoker completed Former Smoker eCW1 ([facility]) Smoking 04/15/2021 12:00:00 AM EST Former Smoker completed Former Smoker eCW1 ([facility]) Smoking 04/15/2021 12:00:00 AM EST Former Smoker completed Former Smoker eCW1 ([facility]) Smoking 04/04/2021 12:00:00 AM EST Former Smoker completed Former Smoker eCW1 ([facility]) Smoking 04/03/2021 12:00:00 AM EST Former Smoker completed Former Smoker eCW1 ([facility]) Smoking 03/24/2021 12:00:00 AM EDT Former Smoker completed Former Smoker eCW1 ([facility]) Smoking 03/17/2021 12:00:00 AM EDT Former Smoker completed Former Smoker eCW1 ([facility]) Smoking 03/07/2021 12:00:00 AM EDT Former Smoker completed Former Smoker eCW1 ([facility]) Smoking 02/24/2021 12:00:00 AM EDT Former Smoker completed Former Smoker eCW1 ([facility]) Smoking 02/04/2021 12:00:00 AM EDT Former Smoker completed Former Smoker eCW1 ([facility]) Smoking 02/04/2021 12:00:00 AM EDT Former Smoker completed Former Smoker eCW1 ([facility]) Smoking 02/04/2021 12:00:00 AM EDT Former Smoker completed Former Smoker eCW1 ([facility]) Smoking 02/04/2021 12:00:00 AM EDT Former Smoker completed Former Smoker eCW1 ([facility]) Smoking 01/16/2021 12:00:00 AM EDT Former Smoker completed Former Smoker eCW1 ([facility]) Smoking 11/14/2020 12:00:00 AM EDT Former Smoker completed Former Smoker eCW1 ([facility]) Smoking 11/14/2020 12:00:00 AM EDT Former Smoker completed Former Smoker eCW1 ([facility]) Smoking 10/28/2020 12:00:00 AM EDT Former Smoker completed Former Smoker eCW1 ([facility]) Smoking 10/28/2020 12:00:00 AM EDT Former Smoker completed Former Smoker eCW1 ([facility]) Vital Signs ID Date Data Source UNK Name Value Range Interpretation Code Description Data Source(s) Body weight 247 [lb_av] 247 [lb_av] eCW1 ([facility]) Body height 61 [in_i] 61 [in_i] W1 ([facility]) Body mass index (BMI) [Ratio] 46.67 kg/m2 46.67 kg/m2 eCW1 ([facility]) Systolic blood pressure 118 mm[Hg] 118 mm[Hg] e CW1 ([facility]) Diastolic blood pressure 62 mm[Hg] 62 mm[Hg] eCW1 ([facility]) Body weight 248 [lb_av] 248 [lb_av] eCW1 ([facility]) Body weight 112.49 kg 112.49 kg eCW1 ([facility]) Body height 61 [in_i] 61 [in_i] eCW1 ([facility]) Body mass index (BMI) [Ratio] 46.859 kg/m2 46.8 59 kg/m2 eCW1 ([facility]) Systolic blood pressure 128 mm[Hg] 128 mm[Hg] e CW1 ([facility]) Diastolic blood pressure 80 mm[Hg] 80 mm[Hg] eCW1 ([facility]) Body weight 245.4 [lb_av] 245.4 [lb_av] eCW1 ([facility]) Body height 61 [in_i] 61 [in_i] eCW1 ([facility]) Body mass index (BMI) [Ratio] 46.368 kg/m2 46.3 68 kg/m2 eCW1 ([facility]) Systolic blood pressure 124 mm[Hg] 124 mm[Hg] e CW1 ([facility]) Diastolic blood pressure 80 mm[Hg] 80 mm[Hg] eCW1 ([facility]) Body weight 249 [lb_av] 249 [lb_av] eCW1 ([facility]) Body mass index (BMI) [Ratio] 47.048 kg/m2 47.0 48 kg/m2 eCW1 ([facility]) Systolic blood pressure 126 mm[Hg] 126 mm[Hg] e CW1 ([facility]) Diastolic blood pressure 80 mm[Hg] 80 mm[Hg] eCW1 ([facility]) Body weight 112.94 kg 112.94 kg eCW1 ([facility]) Body height 61 [in_i] 61 [in_i] eCW1 ([facility]) Body weight 248.6 [lb_av] 248.6 [lb_av] eCW1 ([facility]) Body mass index (BMI) [Ratio] 46.973 kg/m2 46.9 73 kg/m2 eCW1 ([facility]) Body height 61 [in_i] 61 [in_i] eCW1 ([facility]) Diastolic blood pressure 70 mm[Hg] 70 mm[Hg] eCW1 ([facility]) Systolic blood pressure 112 mm[Hg] 112 mm[Hg] e CW1 ([facility]) Body weight 245.2 [lb_av] 245.2 [lb_av] eCW1 ([facility]) Body mass index (BMI) [Ratio] 46.33 kg/m2 46.33 kg/m2 eCW1 ([facility]) Body height 61 [in_i] 61 [in_i] eCW1 ([facility]) Systolic blood pressure 130 mm[Hg] 130 mm[Hg] e CW1 ([facility]) Diastolic blood pressure 82 mm[Hg] 82 mm[Hg] eCW1 ([facility]) Body weight 242.8 [lb_av] 242.8 [lb_av] eCW1 ([facility]) Body height 61 [in_i] 61 [in_i] eCW1 ([facility]) Body mass index (BMI) [Ratio] 45.877 kg/m2 45.8 77 kg/m2 eCW1 ([facility]) Systolic blood pressure 130 mm[Hg] 130 mm[Hg] e CW1 ([facility]) Diastolic blood pressure 76 mm[Hg] 76 mm[Hg] eCW1 ([facility]) Body weight 240.8 [lb_av] 240.8 [lb_av] eCW1 ([facility]) Body weight 109.22 kg 109.22 kg eCW1 ([facility]) Body height 61 [in_i] 61 [in_i] eCW1 ([facility]) Body mass index (BMI) [Ratio] 45.499 kg/m2 45.4 99 kg/m2 eCW1 ([facility]) Systolic blood pressure 120 mm[Hg] 120 mm[Hg] e CW1 ([facility]) Diastolic blood pressure 78 mm[Hg] 78 mm[Hg] eCW1 ([facility]) Diastolic blood pressure 78 mm[Hg] 78 mm[Hg] eCW1 ([facility]) Body weight 235 [lb_av] 235 [lb_av] eCW1 ([facility]) Body height 61 [in_i] 61 [in_i] eCW1 ([facility]) Body mass index (BMI) [Ratio] 44.403 kg/m2 44.4 03 kg/m2 eCW1 ([facility]) Systolic blood pressure 118 mm[Hg] 118 mm[Hg] e CW1 ([facility]) Body weight 236.2 [lb_av] 236.2 [lb_av] eCW1 ([facility]) Body weight 107.14 kg 107.14 kg eCW1 ([facility]) Body height 61 [in_i] 61 [in_i] eCW1 ([facility]) Body mass index (BMI) [Ratio] 44.63 kg/m2 44.63 kg/m2 W1 ([facility]) Systolic blood pressure 122 mm[Hg] 122 mm[Hg] e CW1 ([facility]) Diastolic blood pressure 78 mm[Hg] 78 mm[Hg] eCW1 ([facility]) Diastolic blood pressure 80 mm[Hg] 80 mm[Hg] eCW1 ([facility]) Systolic blood pressure 122 mm[Hg] 122 mm[Hg] e CW1 ([facility]) Body weight 234 [lb_av] 234 [lb_av] eCW1 ([facility]) Body height 61 [in_i] 61 [in_i] eCW1 ([facility]) Body mass index (BMI) [Ratio] 44.214 kg/m2 44.2 14 kg/m2 eCW1 ([facility]) Body weight 243 [lb_av] 243 [lb_av] eCW1 ([facility]) Body height 61 [in_i] 61 [in_i] eCW1 ([facility]) Body mass index (BMI) [Ratio] 45.914 kg/m2 45.9 14 kg/m2 eCW1 ([facility]) Systolic blood pressure 110 mm[Hg] 110 mm[Hg] e CW1 ([facility]) Diastolic blood pressure 78 mm[Hg] 78 mm[Hg] eCW1 ([facility]) Systolic blood pressure 120 mm[Hg] 120 mm[Hg] M EDENT ([facility]) Diastolic blood pressure 68 mm[Hg] 68 mm[Hg] [facility] ([facility]) Body mass index (BMI) [Ratio] 46.9 kg/m2 46.9 k g/m2 [facility] ([facility]) Heart rate 105 /min 105 /min [facility] ([facility]) Respiratory rate 14 /min 14 /min [facility] ( [facility]) Oxygen saturation in Arterial blood by Pulse oximetry 99 % 99 % [facility] ([facility]) Spur body weight 105 [lb_av] 105 [lb_av] MEDEN T ([facility]) Body height 61 [in_i] 61 [in_i] MEDENT ([facility]) 5'1" Body weight 248.00 [lb_av] 248.00 [lb_av] MEDEN T ([facility]) Body temperature 99.3 [degF] 99.3 [degF] [facility] ([facility]) Systolic blood pressure 110 mm[Hg] 110 mm[Hg] M EDENT ([facility]) Diastolic blood pressure 78 mm[Hg] 78 mm[Hg] [facility] ([facility]) Heart rate 92 /min 92 /min MED[facility] ([facility]) Body temperature 98.2 [degF] 98.2 [degF] [facility] ([facility]) Respiratory rate 16 /min 16 /min [facility] ( [facility]) Oxygen saturation in Arterial blood by Pulse oximetry 97 % 97 % [facility] ([facility]) Body weight 243.00 [lb_av] 243.00 [lb_av] MEDEN T ([facility]) 238 stated weight Body weight 110.225 kg 110.225 kg MED[facility] ([facility]) Body height 61 [in_i] 61 [in_i] [facility] ([facility]) 5'1" Body mass index (BMI) [Ratio] 45.9 kg/m2 45.9 k g/m2 [facility]) Body surface area Derived from formula 2.05 m2 2.05 m2 [facility]) Respiratory rate 16 /min 16 /min [facility] ( [facility]) Oxygen saturation in Arterial blood by Pulse oximetry 98 % 98 % [facility]) Systolic blood pressure 120 mm[Hg] 120 mm[Hg] M EDENT ([facility]) Diastolic blood pressure 78 mm[Hg] 78 mm[Hg] [facility] Heart rate 99 /min 99 /min [facility] ([facility]) Body temperature 97.8 [degF] 97.8 [degF] [facility]) Body weight 242.12 [lb_av] 242.12 [lb_av] MEDEN T ([facility]) at home scale 237.1 Body weight 109.828 kg 109.828 kg [facility] Body height 61 [in_i] 61 [in_i] [facility] ([facility]) 5'1" Body mass index (BMI) [Ratio] 45.7 kg/m2 45.7 k g/m2 [facility]) Body surface area Derived from formula 2.05 m2 2.05 m2 [facility] ([facility]) Body mass index (BMI) [Ratio] 47.1 kg/m2 47.1 k g/m2 [facility]) Body surface area Derived from formula 2.07 m2 2.07 m2 [facility]) Systolic blood pressure 120 mm[Hg] 120 mm[Hg] M EDENT ([facility]) Diastolic blood pressure 84 mm[Hg] 84 mm[Hg] [facility] ([facility]) Heart rate 82 /min 82 /min [facility] ([facility]) Body temperature 98.4 [degF] 98.4 [degF] [facility] ([facility]) Respiratory rate 16 /min 16 /min [facility] ( [facility]) Oxygen saturation in Arterial blood by Pulse oximetry 98 % 98 % [facility] ([facility]) Body weight 249.12 [lb_av] 249.12 [lb_av] MEDEN T ([facility]) stated weight 243 at home Body weight 113.003 kg 113.003 kg [facility] ([facility]) Body height 61 [in_i] 61 [in_i] [facility] ([facility]) 5'1" Systolic blood pressure 122 mm[Hg] 122 mm[Hg] M EDENT ([facility]) Diastolic blood pressure 82 mm[Hg] 82 mm[Hg] [facility] ([facility]) Heart rate 86 /min 86 /min [facility] ([facility]) Body temperature 98.0 [degF] 98.0 [degF] [facility] ([facility]) Respiratory rate 16 /min 16 /min [facility] ( [facility]) Oxygen saturation in Arterial blood by Pulse oximetry 99 % 99 % [facility] Body weight 251.00 [lb_av] 251.00 [lb_av] MEDEN T ([facility]) Body weight 113.854 kg 113.854 kg [facility] ([facility]) Body height 61 [in_i] 61 [in_i] [facility] ([facility]) 5'1" Body mass index (BMI) [Ratio] 47.4 kg/m2 47.4 k g/m2 [facility]) Body surface area Derived from formula 2.08 m2 2.08 m2 [facility]) Patient Treatment Plan of Care Planned Activity Planned Date Details Description Data Source (s) Aspir-Low 81 MG 12/02/2020 12:00:00 AM EDT eCW1 ([facility]) Aspir-Low 81 MG 12/02/2020 12:00:00 AM EDT eCW1 ([facility])
[2021-04-27] MEDS ORDERED: ceFAZolin SOD 2 GM in IV 1 EA IV ONE (17:15)
[2021-04-27] MEDS ORDERED: LR 1,000 ML IV SCH ×4 (17:15→23:35)
--- NOTE | 2021-04-27 17:28 | HPEPDOC ---
Obstetrical History & Physical General Date of Admission Apr 27, 2021 at 17:10 History of Present Illness 26 yo female at 37 2/7 weeks by LMP c/w 10 week ultrasound (EDC=05/16/2021) presents with c/o leakage of fluid per vagina. She has contractions that have become regular. She has visual changes of spots in front of her eyes. She had preeclampsia with her prior . The fetus has not been vertex. Past Medical History Past Obstetrical History : Past Obstetrical History: Multigravida Past Medical History Medical History OB Hx: 1 01/2015 38 5-9oz female Epidural [place] 2 09/2015 21 male Epidural [place] Yes- [facility] probable placental abruption 3 07/2016 37 6-10oz male Epidural [facility] Gestational hypertension, Pre-eclampsia 4 02/2018 5.0 Miscarriage 5 01/13/2019 7 2 female epidural [facility] no 39w Med Hx: Gestational hypertension PCOS Anxiety/ Depression Surgical Hx: Ankle left Gall bladder dental surgery-implant Family History Significant Family History: No pertinent family hx Social History Marital Status: Family situation: Spouse/partner home Psychosocial History: Anxiety * Smoker: former Smoker Alcohol: Denies Allergies Coded Allergies: Penicillins (Verified Allergy, Unknown, 11/19/18) ibuprofen (Verified Allergy, Unknown, 11/19/18) Medications Scheduled Metformin HCl (Metformin HCl) 500 Mg Tablet, 1,000 MG PO DAILY No.137/Iron/Folic Acd ( Vitamin Tablet) 1 Each Tablet, 1 TAB PO DAILY Scheduled PRN Docusate Sodium (Stool Softener) 100 Mg Capsule, 100 MG PO DAILYPRN PRN for CONSTIPATION Loratadine (Claritin) 10 Mg Capsule, 10 MG PO DAILYPRN PRN for CONGESTION Physical Examination Physical Examination GENERAL: Alert and oriented times three. BREAST: . ABDOMEN: Gravid and non-tender to touch. FETUS: Is vertex (VTX) by sterile vaginal examination (SVE), fetus is vertex (VTX) by Melvin. HEART RATE: Regular rate and rhythm. LUNGS: Clear to auscultation (CTA). EXTREMITIES: No edema. No clonus. Deep tendon reflexes (DTRs) + . Vital Signs/I&O Vital Signs Date Time Temp Pulse Resp B/P (MAP) Pulse Ox O2 Delivery O2 Flow Rate FiO2 04/27/21 16:14 97.9 125 18 157/81 (106) Laboratory Data 24H LABS Laboratory Tests 2 04/27/21 15:40: Urine Random Creatinine 165.0, Urine Random Total Protein 19.9H 04/27/21 16:01: Nucleated Red Blood Cells % (auto) 0.0, Glomerular Filtration Rate > 60.0, Uric Acid 5.9, Total Bilirubin 0.4, Aspartate Amino Transf (AST/SGOT) 18, Alanine Aminotransferase (ALT/SGPT) 27, Lactate Dehydrogenase 141 CBC/BMP Laboratory Tests 04/27/21 16:01 Pertinent Laboratoy Data Blood Type: B+ Group B Streptococcus: Negative Vaginal Examination Dilation: 1cm Effacement: 50% Station: -2 Cervical Consistency: Medium Cervical Position: Posterior Presentation: Breech presentation Assessment Variability: Moderate Accelerations: Positive Decelerations: None Tocometer Contractions: Yes Frequency: regular Assessment/Plan Assessment 26 yo female at 37 2/7 weeks by LMP c/w 10 week ultrasound (EDC=05/16/2021) presents with preeclampsia, breech presentation Plan Admit and orient. Time Study Clerk and consent. Plan and BTL. Declines ECV attempt No evidence of ROM JAIDEN MADISON MD Apr 27, 2021 17:28
[2021-04-27 18:37] VITALS: BP 124/91
[2021-04-27] MEDS ORDERED: BICITRA 30ML SOLN UDC PO SCH (20:00)
[2021-04-27] MEDS ORDERED: MORPHINE PRES-FREE INJ 10 MG/10 ML VIAL (J2274) As Ordered ONE (20:15)
[2021-04-27] MEDS ORDERED: ePHEDrine SULFATE 25 MG/5 ML(5MG/ML) SYRINGE As Ordered ONE (20:16)
[2021-04-27] MEDS ORDERED: PHENYLephrine 500MCG 5ML (100MCG/ML) SYRINGE As Ordered ONE (20:16)
[2021-04-27] MEDS ORDERED: OXYTOCIN 30 UNITS IN 0.9% NaCl 500ML IV BAG (J2590) As Ordered ONE ×2 (20:18→23:08)
[2021-04-27] MEDS ORDERED: ONDANSETRON 4MG/2ML VIAL IV PRN ×5 (21:53→23:35)
[2021-04-27] MEDS ORDERED: METOCLOPRAMIDE INJ 10MG/2ML VIAL (J2765 PER 1) IV PRN ×4 (21:53→23:35)
[2021-04-27] MEDS ORDERED: diphenhydrAMINE 50MG/ML VIAL (J1200) IV PRN ×2 (21:53)
[2021-04-27] MEDS ORDERED: NALBUPHINE HCL 10 MG/ML AMP (J2300) IV PRN ×2 (21:53)
[2021-04-27] MEDS ORDERED: NALOXONE INJ 0.4MG/1ML VIAL (J2310 PER 1MG) IV PRN ×4 (21:53)
[2021-04-27] MEDS ORDERED: ONDANSETRON 4MG/2ML VIAL As Ordered ONE (22:12)
[2021-04-27] MEDS ORDERED: ACETAMINOPHEN 1000MG 100ML IV BTL (OFIRMEV) (J0131 PER 10MG) As Ordered ONE (22:13)
[2021-04-27] MEDS ORDERED: fentaNYL 100 MCG/2 ML INJECTION (J3010) IV PRN (23:05)
[2021-04-27] MEDS ORDERED: PERCOCET 5MG/325MG TAB PO PRN ×3 (23:05→23:35)
[2021-04-27] MEDS ORDERED: SIMETHICONE 80MG CHEW TAB PO PRN (23:15)
[2021-04-27] MEDS ORDERED: OXYTOCIN DRIP 30 UNITS in IV 1 EA IV SCH (23:15)
[2021-04-27] MEDS ORDERED: MEASLES,MUMPS,RUBELLA VACCINE INJ (MMR-II) (90707) SC SCH (23:15)
[2021-04-27] MEDS ORDERED: RHOGAM 300 MCG (1500 IU) INJ (J2790) IM SCH (23:15)
[2021-04-27] MEDS ORDERED: fentaNYL 100 MCG/2 ML INJECTION (J3010) As Ordered ONE (23:17)
[2021-04-27] MEDS: fentaNYL 100 MCG/2 ML INJECTION (J3010) IV PRN ×2 (23:20→23:30)
[2021-04-28] VITALS (9 sets, daily range): BP systolic 100–126; BP diastolic 55–76
[2021-04-28] MEDS ORDERED: KETOROLAC 30 MG/ML 1ML VIAL IV SCH
--- NOTE | 2021-04-28 01:20 | ROOPDOC ---
[facility] Report Of Operation Report of Operation DATE OF PROCEDURE: 04/27/21 Report of operation Preoperative diagnosis:37 2/7 weeks, preeclampsia, breech Postoperative diagnosis: Same Procedure: Primary low transverse section and bilateral tubal sterilization. Surgeon: Jaiden Madison M.D. Asst.: Sean Villela DO EBL: 600 ml. Urine output: 100 mL's. Findings: 5 lbs. 15 oz. female ( 2700 g), compound breech, 's 8 and 9, normal uterus, fallopian tubes, ovaries. Operative summary: Patient taken to the operating room where spinal anesthesia was induced. She was prepped and draped in a sterile fashion in the supine position. A Singh catheter was placed. A Pfannenstiel skin incision was made with scalpel. Fascia was incised and extended bilaterally. The fascia was dissected off the rectus muscles. The peritoneal cavity was entered. A Mobius retractor was placed. A bladder flap was created. A curvilinear incision was made in lower uterine segment until Clear fluid was noted. The incision was extended manually. The was delivered from the breech position without difficulty using standard maneuvers. Cord was double clamped and cut. The infant was handed waiting nurses. The placenta was expressed. Uterus was closed with O- Vicryl in a running locked fashion. A second imbricating layer of Vicryl was placed. Attention was turned to the fallopian tubes. A [place] clamp was used to grasp the fallopian tubes at the midportion.. A window was created in the broad ligament free tie of 2-0 chromic was placed around the segment of tube on either side of the clamp. A Segment of tube was excised bilaterally and sent to pathology. Peritoneum was closed with 2-0 Vicryl a running fashion. Fascia was closed with 0 Vicryl in running fashion. Skin was closed 4-0 Monocryl subcuticular sutures. Sponge, instrument and needle counts were correct. Sean Villela DO, assisted with all aspects of the procedure. He helped each layer of the incision and deliver the fetus. JAIDEN MADISON MD Apr 28, 2021 01:20
[2021-04-28] MEDS: PERCOCET 5MG/325MG TAB PO PRN ×2 (02:00→23:39)
[2021-04-28] MEDS: KETOROLAC 30 MG/ML 1ML VIAL IV SCH ×3 (08:00→20:31)
[2021-04-28] MEDS ORDERED: metFORMIN (GLUCOPHAGE) 1000 MG TABLET PO SCH ×2 (09:00→21:00)
[2021-04-28] MEDS ORDERED: PRENATAL VITAMINS CHEWABLE TABLET PO SCH (09:00)
[2021-04-28 09:50] LABS: HEMATOCRIT 33.6 % (36.0-47.0); MEAN CORPUSCULAR HEMOGLOBIN 30.2 pg (27.0-33.0); MEAN CORPUSCULAR HGB CONC 32.7 g/dl (32.0-36.5); MEAN CORPUSCULAR VOLUME 92.3 fl (80.0-96.0); PLATELET COUNT, AUTOMATED 200 10^3/uL (150-450); RED BLOOD COUNT 3.64 10^6/uL (4.00-5.40); WHITE BLOOD COUNT 9.8 10^3/uL (4.0-10.0)
[2021-04-28] MEDS ORDERED: OXYC1TAB23 PO (15:07)
[2021-04-28] MEDS ORDERED: IBUPROFEN 800 MG TAB PO SCH (20:00)
[2021-04-28] MEDS: DOCUSATE SODIUM 100MG CAPSULE PO PRN (20:30)
[2021-04-29 02:00] VITALS: BP 126/66
[2021-04-29] MEDS: KETOROLAC 30 MG/ML 1ML VIAL IV SCH ×3 (02:08→13:11)
[2021-04-29] MEDS: DOCUSATE SODIUM 100MG CAPSULE PO PRN (07:48)
[2021-04-29] MEDS: PERCOCET 5MG/325MG TAB PO PRN ×2 (07:49→13:14)
--- NOTE | 2021-04-29 08:26 | DS.PDOC ---
Discharge Summary General Date of Admission Apr 27, 2021 at 17:10 Date of Discharge Apr 29, 2021 Discharge Summary PROCEDURES PERFORMED DURING STAY: section and BTL. ADMITTING DIAGNOSES: 1. 37 2/7 weeks, breech, preeclampsia. DISCHARGE DIAGNOSES: 1. same. COMPLICATIONS/CHIEF COMPLAINT: Labor Check, ?Rom. HISTORY OF PRESENT ILLNESS: 26 yo at 37 2/7 weeks presents for contractions and leaking of fluid. She was noted to have persistently elevated BP's in triage. HOSPITAL COURSE: 26 yo at 37 2/7 weeks presents for contractions and leaking of fluid. She was noted to have persistently elevated BP's in triage. Fetus in the breech position. Pt diagnosed with preeclampsia. She had a primary and BTL for a 5 lb 15 oz female infant. no complications. Her post op curse was unremarkable. Adequate return of bladder and bowel function. Stable for discharge POD#2. DISCHARGE MEDICATIONS: Please see below. ALLERGIES: Please see below. PHYSICAL EXAMINATION ON DISCHARGE: VITAL SIGNS: Please see below. GENERAL: NAD HEENT: NCAT CARDIOVASCULAR EXAMINATION: RRR RESPIRATORY EXAMINATION: CTA ABDOMINAL EXAMINATION: FF, dressing CDI EXTREMITIES: NT LABORATORY DATA: Please see below. PROGNOSIS: good ACTIVITY: As tolerated. DIET: reg DISCHARGE PLAN: home DISPOSITION: . DISCHARGE INSTRUCTIONS: 1. Instrucions 2. Pain management 3. f-u arranged. DISCHARGE CONDITION: Stable. TIME SPENT ON DISCHARGE: 10 minutes. Vital Signs/I&Os Vital Signs Date Time Temp Pulse Resp B/P (MAP) Pulse Ox O2 Delivery O2 Flow Rate FiO2 04/29/21 07:49 18 04/29/21 02:00 97.6 90 126/66 (86) 97 Room Air I&O- Last 24 Hours up to 6 AM 04/29/21 06:00 Intake Total 350 ml Output Total 250 ml Balance 100 ml Laboratory Data Labs 24H Laboratory Tests 2 04/28/21 09:17: Nucleated Red Blood Cells % (auto) 0.0 CBC/BMP Laboratory Tests 04/28/21 09:17 Discharge Medications Scheduled Metformin HCl (Metformin HCl) 500 Mg Tablet, 1,000 MG PO DAILY, (Reported) No.137/Iron/Folic Acd ( Vitamin Tablet) 1 Each Tablet, 1 TAB PO DAILY, (Reported) Scheduled PRN Docusate Sodium (Stool Softener) 100 Mg Capsule, 100 MG PO DAILYPRN PRN for CONSTIPATION, (Reported) Loratadine (Claritin) 10 Mg Capsule, 10 MG PO DAILYPRN PRN for CONGESTION, (Reported) Oxycodone HCl/Acetaminophen (Oxycodone-Acetaminophen 5-325) 1 Each Tablet, 1 TAB PO TIDP PRN for pain Allergies Coded Allergies: Penicillins (Verified Allergy, Unknown, 11/19/18) ibuprofen (Verified Allergy, Unknown, 11/19/18) JAIDEN MADISON MD Apr 29, 2021 08:26
== END 2021-04-29 14:00 | disposition home or self-care (01) | DRG 785 ==
LOC: M LDO 14:27 → M LDI 17:10 → M OBS 04-28 00:44
PROVIDERS: ADMIT Specialist; ATTEND Specialist
PROC: 0UB70ZZ Excision of Bilateral Fallopian Tubes, Open Approach (ICD-10-PCS; 2021-04-27)
PROC: 10D00Z1 Extraction of Products of Conception, Low, Open Approach (ICD-10-PCS; principal; 2021-04-27 20:00)
DX: O14.04 Mild to moderate pre-eclampsia, complicating childbirth (principal); Z3A.37 37 weeks gestation of pregnancy; Z37.0 Single live birth; O64.1XX0 Obstructed labor due to breech presentation, not applicable or unspecified; Z30.2 Encounter for sterilization